=== PATIENT | female | born 1945 | race Caucasian/White ===

== ENCOUNTER → 2016-10-02 | Outpatient (CLI) | payer OTHER, MEDICARE ==
--- NOTE | 2016-10-02 21:13 | MR ---
"MRI Cervical Spine (Without Contrast) History: M47.12, M54.2, cervicalgia, spondylosis, myelopathy, M54.12, radiculopathy. Technique: Sagittal T1, T2, axial T2, and 3D gradient echo MR sequences of the cervical spine, witho ut contrast. Findings: Reversal of the normal lordotic curvature of the cervical spine. No cervical compressio n fractures or destructive osseous lesions. Grade 1 anterolisthesis at C3-C4 and C4-C5. Grade 1 ret rolisthesis at C5-C6. Grade 1 anterolisthesis at C7-T1. Cerebellar tonsils are in normal position. Cord compression, especially at C3-C4 and C5-C6, with possible mild cord edema at C3-C4 and C5-C6. C2-C3: Mild bilateral facet arthropathy, without stenosis. C3-C4: Moderate degenerative disk disease, with degenerative grade 1 anterolisthesis, 4 mm, dorsal d isk/osteophyte complex, and moderate bilateral facet arthropathy, resulting in severe central canal s tenosis, with cord compression, cord deformity, and cord edema, and severe bilateral neural foraminal stenosis. C4-C5: Moderate degenerative disk disease, with dorsal disk/osteophyte complex, mild anterolisthesis , and bilateral uncovertebral osteophytes, with moderate bilateral facet arthropathy, resulting in mo derate central canal stenosis, with slight cord compression, moderate to severe right neural foramina l stenosis, and mild to moderate left neural foraminal stenosis. C5-C6: Severe degenerative disk disease, with dorsal disk/osteophyte complex, asymmetrically more pr ominent towards the right, bilateral uncovertebral osteophytes, and degenerative grade 1 retrolisthes is, resulting in severe central canal stenosis, with cord compression and deformity, cord edema, and moderate to severe bilateral neural foraminal stenosis, right worse than left. C6-C7: Severe degenerative disk disease, with dorsal disk/osteophyte complex and bilateral uncoverte bral osteophytes, with mild bilateral facet arthropathy, resulting in moderate to severe central jhonathan l stenosis, with slight cord compression and deformity, and moderate bilateral neural foraminal steno sis, without definite cord edema. C7-T1: Severe bilateral facet arthropathy, mild degenerative disk disease, and degenerative grade 1 anterolisthesis, resulting in mild to moderate bilateral neural foraminal stenosis, without central c anal stenosis. Impressions 1. Severe degenerative disk disease, with cord compression and edema, from C3-C4 through C6-C7, wors e at C3-C4 and C5-C6. 2. C3-C4: Degenerative grade 1 anterolisthesis resulting in cord compression and edema. 3. C5-C6: Degenerative retrolisthesis resulting in cord compression and edema. 4. Please see above findings at specific disk levels. Findings and recommendations discussed with Josi Morales PA-C, cash person for Neurosurgery, at [address], on October 02, 2016. A Document Only message has been documented for RUBY Rashid in the [employer] | Crit ical Result system on 10/02/2016 20:55, Message ID [id number]."
== END ==
LOC: FIMAGING 18:39
PROVIDERS: ATTEND Physician Assistant
DX: M50.31 Other cervical disc degeneration, high cervical region (principal); G95.29 Other cord compression; M43.12 Spondylolisthesis, cervical region; M50.922 Unspecified cervical disc disorder at C5-C6 level

== ENCOUNTER 2016-10-04 19:24 | Observation (INO) | payer OTHER, MEDICARE ==
--- NOTE | 2016-10-04 20:05 | EDPHY ---
H & P Stated Complaint: back pain, left arm numbness- MRI done on wednesday Time Seen by Provider: 10/04/16 19:47 HPI/ROS: CHIEF COMPLAINT: Arm numbness. HISTORY OF PRESENT ILLNESS: The patient is a 71-year-old female with chronic back pain presenting with ongoing left arm numbness. The numbness began last week so she visited Dr. Viera who ordered an MRI that was taken 3 days ago. It showed cord compression and edema at multiple cervical levels. According to the patient, she has not discussed the MRI results with her neurosurgeon. 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 She admits ataxic gait and shortness of breath today and feels off balance. She developed a fever today and dysuria and is febrile on presentation at 38.2. She admits recent cold symptoms including dry cough and rhinorrhea. No chills, chest pain, palpitations, vomiting, diarrhea, headache, lightheadedness. She did get a flu shot this year. REVIEW OF SYSTEMS: Aside from elements discussed in the HPI, a comprehensive 10-point review of systems was reviewed and is negative. Patient received reports she has not been taking her Coumadin. PAST MEDICAL HISTORY: Chronic back pain, cholecystitis, Factor V Leiden, sleep apnea, hyperlipidemia, knee replacements. SOCIAL HISTORY: Here with son. VITAL SIGNS: Reviewed by me GENERAL: Overweight individual, resting comfortably in no respiratory distress. HEENT: Atraumatic. Eyes: No icterus, no injection. Mouth: moist mucous membranes. No erythema or lesions. Neck: supple with no adenopathy. LUNGS: Diminished breath sounds bilaterally but clear. No wheezes, rhonchi or rales. CARDIAC: Regular rate and rhythm, no rubs, murmurs or gallops. ABDOMEN: Soft, nontender, nondistended, bowel sounds normal. BACK: No CVA tenderness. EXTREMITIES: No trauma. No edema. Range of motion is normal throughout. NEURO: Deltoid strength 4/5 bilaterally. Biceps strength 3/5 bilaterally. Triceps 4/5 bilaterally. Hand abrasives sales representative weak, 2.5/5 left and 3.5/5. Alert and oriented. Gait is slow, and patient reports feeling very weak. Motor strength in the lower extremities, 4/5 bilaterally. SKIN: Warm and dry, no rash. PSYCHIATRIC: Normal mentation, no agitation. Portions of this note were transcribed by a medical records supervisor. I personally performed a history, physical exam, medical decision making, and confirmed accuracy of information the transcribed note. - Personal History Tetanus Vaccine Date: doesn't know - Medical/Surgical History Hx Asthma: No Hx Chronic Respiratory Disease: No Hx Diabetes: No Hx Cardiac Disease: No Hx Renal Disease: No Hx Cirrhosis: No Hx Alcoholism: No Hx HIV/AIDS: No Hx Splenectomy or Spleen Trauma: No Other PMH: Obesity, chronic back pain, GALLBLADDER DISEASE. Factor V blood. thyroid. HTN. blood thinner. sleep apnea. Hyperlipidemia. b knee replacements. pins in back. bulging discs. - Social History Smoking Status: Never smoked Constitutional: Initial Vital Signs Temperature (C) 38.2 C 10/04/16 19:28 Heart Rate 103 H 10/04/16 19:28 Respiratory Rate 20 10/04/16 19:28 Blood Pressure 134/78 H 10/04/16 19:28 O2 Sat (%) 94 10/04/16 19:28 O2 Delivery Mode Room Air Allergies/Adverse Reactions: No Known Allergies Allergy (Unverified 10/04/16 19:28) Home Medications: Medication Instructions Recorded Alendronate Sodium [Fosamax 70 MG 70 mg PO MO@0700 07/08/15 (*)] Levothyroxine [Synthroid 75 mcg 75 mcg PO DAILY06 07/08/15 (*)] Multivitamins [Multivitamin (*)] 1 each PO DAILY 07/08/15 Omeprazole [Prilosec 20 mg] 20 mg PO BID 07/08/15 Ondansetron Odt [Zofran Odt 4 mg 4 mg PO TID PRN 07/08/15 (*)] Oxybutynin Chloride Xl [Ditropan 10 mg PO DAILY 07/08/15 Xl 5mg (*)] Simvastatin [Zocor] 40 mg PO HS 07/08/15 Sulfamethoxazole/Trimethoprim 1 each PO DAILY 07/08/15 [Bactrim SS] Venlafaxine Xr [Effexor Xr 37.5MG 37.5 mg PO MOWEFR 07/08/15 (*)] Warfarin Sodium 6 mg PO DAILY@16 07/08/15 Enoxaparin [Lovenox] 150 mg SC DAILY #5 syr 07/10/15 Hydrocodone/APAP 5/325 [[place] 1 - 2 tab PO Q6 PRN #30 tab 07/10/15 5/325 (*)] levOFLOXACIN [levAQUIN (*)] 750 mg PO DAILY10 #5 tab 07/10/15 Medical Decision Making - Diagnostics EKG Interpretation: 12-LEAD EKG: Please see the full report in [employer] [facility]. My interpretation: Normal sinus rhythm rate 90. Imaging: Chest x-ray was obtained. I viewed the images myself on the PACS system. My interpretation of the images is: No acute findings. The radiologist interpretation is pending at this time. I discussed the x-ray findings with the patient. ED Course/Re-evaluation: An IV was established. Chest x-ray ordered. 2016: Consulted with Dr. Reagan, neurosurgery. Per Dr. Reagan, the neurosurgeon versus has been trying to reach the patient over the weekend to discuss her MRI results. Most likely the patient will require a cervical fusion. Evaluation for the patient's fever was undertaken. Urinalysis demonstrates 50- 182 white cells per high-power field, 4+ bacteria, leukocyte Estrace. There is 3+ epithelial cells as well. This is sent for culture. Patient received a L of normal saline and a g of ceftriaxone. Her course was discussed with Dr. Perlita Veras. Patient does not feel like she is safe to go home. She reports feeling to off balance and to generally weak. She was admitted to the hospitalist service. Dr. Reagan will consult on her in the morning. Differential Diagnosis: Differential diagnosis for fever in adults was considered including but not limited to pneumonia, urinary tract infection, viral syndrome, and influenza. Differential diagnosis of the patient's weakness was considered including but not limited to electrolyte abnormality, anemia, cardiac ischemia, CVA, spinal cord abnormality, and infectious causes. Consult/Admit Bed Type: Dr. Perlita Veras , med surg - Data Points Laboratory Results: Laboratory Results 10/04/16 20:18 10/04/16 20:18 10/04/16 10/04/16 10/04/16 20:45 20:35 20:18 WBC 10.20 H 10^3/uL (3.80-9.50) RBC 4.74 10^6/uL (4.18-5.33) Hgb 15.2 g/dL (12.6-16.3) Hct 44.0 % (38.0-47.0) MCV 92.8 fL (81.5-99.8) MCH 32.1 pg (27.9-34.1) MCHC 34.5 g/dL (32.4-36.7) RDW 13.2 % (11.5-15.2) Plt Count 302 10^3/uL (150-400) MPV 10.4 fL (8.7-11.7) Neut % (Auto) 75.3 H % (39.3-74.2) Lymph % (Auto) 13.6 L % (15.0-45.0) [place] % (Auto) 8.7 % (4.5-13.0) Eos % (Auto) 1.9 % (0.6-7.6) Baso % (Auto) 0.2 L % (0.3-1.7) Nucleat RBC Rel Count 0.0 % (0.0-0.2) Absolute Neuts (auto) 7.68 H 10^3/uL (1.70-6.50) Absolute Lymphs (auto) 1.39 10^3/uL (1.00-3.00) Absolute Monos (auto) 0.89 H 10^3/uL (0.30-0.80) Absolute Eos (auto) 0.19 10^3/uL (0.03-0.40) Absolute Basos (auto) 0.02 10^3/uL (0.02-0.10) Absolute Nucleated RBC 0.00 10^3/uL (0-0.01) Immature Gran % 0.3 % (0.0-1.1) Immature Gran # 0.03 10^3/uL (0.00-0.10) PT 14.4 SEC (12.0-15.0) INR 1.13 (0.83-1.16) Sodium 139 mEq/L (134-144) Potassium 4.2 mEq/L (3.5-5.2) Chloride 103 mEq/L (97-110) Carbon Dioxide 26 mEq/l (22-31) Anion Gap 10 mEq/L (8-16) BUN 10 mg/dL (7-23) Creatinine 0.9 mg/dL (0.6-1.0) Estimated GFR > 60 Glucose 102 H mg/dL (70-100) Calcium 8.9 mg/dL (8.5-10.4) Troponin I < 0.012 ng/mL (0-0.034) Urine Color YELLOW Urine Appearance MODERATELY TURBID Urine pH 7.0 (5.0-7.5) Ur Specific [place] 1.008 (1.002-1.030) Urine Protein 1+ H (NEGATIVE) Urine Ketones NEGATIVE (NEGATIVE) Urine Blood 2+ H (NEGATIVE) Urine Nitrate NEGATIVE (NEGATIVE) Urine Bilirubin NEGATIVE (NEGATIVE) Urine Urobilinogen NEGATIVE EU (0.2-1.0) Ur Leukocyte Esterase 3+ H (NEGATIVE) Urine RBC 25-50 H /hpf (0-3) Urine WBC 50-182 H /hpf (0-3) Ur Epithelial Cells 3+ H /lpf (NONE-1+) Urine Bacteria 4+ H /hpf (NONE SEEN) Urine Glucose NEGATIVE (NEGATIVE) Influenza A & B (PCR) Pending Medications Given: Discontinued Medications Ceftriaxone Sodium/Dextrose (Rocephin 1 Gm (Premix)) 50 mls @ 100 mls/hr IV EDNOW ONE PRN Reason: Protocol Stop: 10/04/16 21:48 Last Admin: 10/04/16 21:25 Dose: 50 mls Sodium Chloride (Ns) 1,000 mls @ 0 mls/hr IV ONCE ONE PRN Reason: Wide Open Stop: 10/04/16 21:20 Last Admin: 10/04/16 21:25 Dose: 1,000 mls Departure - Departure Disposition: [facility] Inpatient Acute Clinical Impression: Cervical radiculopathy, Weakness, Arm numbness, off balance Condition: Fair Referrals: Billie Harvey, DIPLOMATIC COURIER [Primary Care Provider] - As per Instructions Report Scribed for: Katy Kothari Report Scribed by: Go Yang Date of Report: 10/04/16 Time of Report: 19:49
[2016-10-04 20:34] LABS: % IMMATURE GRANULYOCYTES 0.3 % (0.0-1.1); ABSOLUTE IMMATURE GRANULOCYTES 0.03 10^3/uL (0.00-0.10); ADD DIFF? NO; ADD MORPH? NO; ADD SCAN? NO; ATYPICAL LYMPHOCYTE FLAG 0 (0-99); FRAGMENT RBC FLAG 0 (0-99); HEMOGLOBIN 15.2 g/dL (12.6-16.3); LEFT SHIFT FLG 0 (0-99); LIPEMIA HEMOLYSIS FLAG 90 (0-99); MEAN CELL HEMOGLOBIN 32.1 pg (27.9-34.1); MEAN CELL HEMOGLOBIN CONCENTR. 34.5 g/dL (32.4-36.7); MEAN CELL VOLUME 92.8 fL (81.5-99.8); MEAN PLATELET VOLUME 10.4 fL (8.7-11.7); PLATELET CLUMPS FLAG 0 (0-99); PLATELET COUNT 302 10^3/uL (150-400); RED BLOOD CELL COUNT 4.74 10^6/uL (4.18-5.33); RED CELL DISTRIBUTION WIDTH 13.2 % (11.5-15.2)
--- NOTE | 2016-10-04 20:41 | CPEKG ---
Heart Rate: 90 RR Interval: 667 P-R Interval: 144 QRSD Interval: 78 QT Interval: 364 QTC Interval: 446 P [place]: 40 QRS [place]: 58 T Wave [place]: 31 EKG Severity - NORMAL ECG - EKG Impression: SINUS RHYTHM Electronically Signed By: Nahomy Hughes 05-Oct-2016 06:43:36
--- NOTE | 2016-10-04 20:46 | DX ---
PA and Lateral Chest 20:04 PM Indication: Fever Comparison: 2 view chest dated July 11, 2014 Findings: Lungs remain well aerated and clear. Heart size normal. No consolidation, effusion or mass. Heart size within normal limit. Mild multilevel degenerative disk disease unchanged. Impression: Clear lungs. No pneumonia or acute process.
[2016-10-04 20:49] LABS: ANION GAP 10 mEq/L (8-16); CALCIUM 8.9 mg/dL (8.5-10.4); CARBON DIOXIDE 26 mEq/l (22-31); CHLORIDE 103 mEq/L (97-110); CREATININE 0.9 mg/dL (0.6-1.0); GLOMERULAR FILTRATION RATE > 60; GLUCOSE 102 mg/dL (70-100); POTASSIUM 4.2 mEq/L (3.5-5.2); SODIUM 139 mEq/L (134-144)
[2016-10-04 20:59] LABS: TROPONIN I < 0.012 ng/mL (0-0.034)
[2016-10-04 21:01] LABS: COLOR YELLOW; LEUKOCYTE ESTERASE,URINE 3+ (NEGATIVE); NITRITE,URINE NEGATIVE (NEGATIVE)
[2016-10-04 21:03] LABS: INR 1.13 (0.83-1.16); PROTIME(PATIENT) 14.4 SEC (12.0-15.0)
[2016-10-04 21:08] LABS: BACTERIA 4+ /hpf (NONE SEEN); RBC,URINE 25-50 /hpf (0-3); WBC,URINE 50-182 /hpf (0-3)
[2016-10-04] MEDS ORDERED: NS 1,000 ML IV ONE (21:19)
[2016-10-04] MEDS ORDERED: ACETAMINOPHEN 500 MG TAB PO ONE (22:11)
[2016-10-04] MEDS ORDERED: ONDANSETRON DISINTEGRATING 4 MG TAB PO PRN (23:04)
[2016-10-04] MEDS ORDERED: ONDANSETRON 4 MG/2 ML VIAL IVP PRN (23:04)
[2016-10-04] MEDS ORDERED: ACETAMINOPHEN 500 MG TAB PO PRN (23:04)
[2016-10-04] MEDS ORDERED: IBUPROFEN 200 MG TAB PO PRN (23:04)
[2016-10-04] MEDS: NS 1,000 ML IV SCH (23:32)
[2016-10-04] MEDS: oxyCODONE IR 5 MG TAB PO PRN (23:32)
--- NOTE | 2016-10-04 23:40 | PDGENHP ---
History and Physical - Chief Complaint b/l hand numbness/tingling - History of Present Illness Patient is a 71-year-old female with a history of morbid obesity, factor 5 Leiden deficiency, hypothyroidism and extensive degenerative disc disease of her lumbar and cervical spine who presents to the ED complaining of bilateral hand numbness and tingling. Patient states symptoms have been present for a long while, however having worsened recently over the past 2 weeks. She describes her left hand and her right 1st 3 fingers as having numbness and tingling, associated with loss of wood chopper strength. Given the progression of her symptoms she schedule an appointment with her neurosurgeon, was evaluated in his office on 09/29. MRI of the cervical spine was ordered at that time and completed on the evening of 10/02 and she missed her neurosurgeon's calls home regarding the results of the scan. On day of presentation, patient states that she began experiencing urinary frequency and urgency as well as burning. Admission she felt generally unwell reported some subjective fevers and chills so she decided to come to the ED for further evaluation. She denies any nausea vomiting diarrhea or flank pain. On arrival to the ED patient was afebrile and tachycardic, but hemodynamically stable saturating well on room air. ED workup revealed mild leukocytosis, and grossly positive UA, normal BMP. Results of the MRI of her C- spine were reviewed, revealed extensive cervical cord compression with associated edema. Neurosurgery was contacted by the ED physician and stated there was no acute indication for emergent surgery or IV steroids. She was given IV ceftriaxone for treatment of her UTI and admitted to the hospitalist service for further evaluation and management. History Information - Allergies/Home Medication List Allergies/Adverse Reactions: No Known Allergies Allergy (Unverified 10/04/16 19:28) Home Medications: Alendronate Sodium [Fosamax 70 MG (*)] 70 mg PO MO@0700 07/08/15 [Last Taken ] Levothyroxine [Synthroid 75 mcg (*)] 75 mcg PO DAILY06 07/08/15 [Last Taken ] Multivitamins [Multivitamin (*)] 1 each PO DAILY 07/08/15 [Last Taken 07/05/15] Omeprazole [Prilosec 20 mg] 20 mg PO BID 07/08/15 [Last Taken 07/06/15] Ondansetron Odt [Zofran Odt 4 mg (*)] 4 mg PO TID PRN 07/08/15 [Last Taken 07/07] Oxybutynin Chloride Xl [Ditropan Xl 5mg (*)] 10 mg PO DAILY 07/08/15 [Last Taken 07/05/15] Simvastatin [Zocor] 40 mg PO HS 07/08/15 [Last Taken 07/05/15] Sulfamethoxazole/Trimethoprim [Bactrim SS] 1 each PO DAILY 07/08/15 [Last Taken 07/05/15] Venlafaxine Xr [Effexor Xr 37.5MG (*)] 37.5 mg PO MOWEFR 07/08/15 [Last Taken ] Warfarin Sodium 6 mg PO DAILY@16 07/08/15 [Last Taken 07/05/15] I have personally reviewed and updated: family history, medical history, social history, surgical history - Past Medical History Additional medical history: Morbid obesity. factor 5 Leiden. hypothyroidism. history of DVT. hypertension. degenerative disc disease of the lumbar and cervical spine - Surgical History Additional surgical history: lumbar fusion x2. cholecystectomy. 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 Review of Systems ROS: 10pt was reviewed & negative except for what was stated in HPI & below Physical Exam Temp Pulse Resp BP Pulse Ox 37.8 C 93 18 119/69 92 10/04/16 23:16 10/04/16 23:16 10/04/16 23:16 10/04/16 23:16 10/04/16 23:16 Constitutional: no apparent distress, appears nourished, not in pain, obese Eyes: PERRL, anicteric sclera, EOMI Ears, Nose, Mouth, Throat: hearing normal, ears appear normal, no oral mucosal ulcers, dry mucous membranes Cardiovascular: regular rate and rhythym, no murmur, rub, or gallop, pulses symmetric bilaterally, No JVD, No edema Peripheral Pulses: 2+: dorsalis-pedis (R), dorsalis-pedis (L) Respiratory: no respiratory distress, no rales or rhonchi, clear to auscultation Gastrointestinal: normoactive bowel sounds, soft, non-tender abdomen, no palpable masses, No guarding, No rebound Genitourinary: no bladder fullness, no bladder tenderness Skin: warm, normal color, no rashes or abrasions, no fluctuance, No mottled Musculoskeletal: no muscle tenderness, normal joint ROM, no joint effusions Neurologic: AAOx3, sensation intact bilaterally, weakness (symmetric wood chopper weakness in b/l hands; 5/5 strength in lower extremities), CN II-XII Intact, No facial droop Psychiatric: interacting appropriately, not anxious, not encephalopathic, thought process linear Lab Data & Imaging Review 10/04/16 20:18 10/04/16 20:18 WBC 10.20 10^3/uL (3.80-9.50) H 10/04/16 20:18 RBC 4.74 10^6/uL (4.18-5.33) 10/04/16 20:18 Hgb 15.2 g/dL (12.6-16.3) 10/04/16 20:18 Hct 44.0 % (38.0-47.0) 10/04/16 20:18 MCV 92.8 fL (81.5-99.8) 10/04/16 20:18 MCH 32.1 pg (27.9-34.1) 10/04/16 20:18 MCHC 34.5 g/dL (32.4-36.7) 10/04/16 20:18 RDW 13.2 % (11.5-15.2) 10/04/16 20:18 Plt Count 302 10^3/uL (150-400) 10/04/16 20:18 MPV 10.4 fL (8.7-11.7) 10/04/16 20:18 Neut % (Auto) 75.3 % (39.3-74.2) H 10/04/16 20:18 Lymph % (Auto) 13.6 % (15.0-45.0) L 10/04/16 20:18 [place] % (Auto) 8.7 % (4.5-13.0) 10/04/16 20:18 Eos % (Auto) 1.9 % (0.6-7.6) 10/04/16 20:18 Baso % (Auto) 0.2 % (0.3-1.7) L 10/04/16 20:18 Nucleat RBC Rel Count 0.0 % (0.0-0.2) 10/04/16 20:18 Absolute Neuts (auto) 7.68 10^3/uL (1.70-6.50) H 10/04/16 20:18 Absolute Lymphs (auto) 1.39 10^3/uL (1.00-3.00) 10/04/16 20:18 Absolute Monos (auto) 0.89 10^3/uL (0.30-0.80) H 10/04/16 20:18 Absolute Eos (auto) 0.19 10^3/uL (0.03-0.40) 10/04/16 20:18 Absolute Basos (auto) 0.02 10^3/uL (0.02-0.10) 10/04/16 20:18 Absolute Nucleated RBC 0.00 10^3/uL (0-0.01) 10/04/16 20:18 Immature Gran % 0.3 % (0.0-1.1) 10/04/16 20:18 Immature Gran # 0.03 10^3/uL (0.00-0.10) 10/04/16 20:18 PT 14.4 SEC (12.0-15.0) 10/04/16 20:18 INR 1.13 (0.83-1.16) 10/04/16 20:18 Sodium 139 mEq/L (134-144) 10/04/16 20:18 Potassium 4.2 mEq/L (3.5-5.2) 10/04/16 20:18 Chloride 103 mEq/L (97-110) 10/04/16 20:18 Carbon Dioxide 26 mEq/l (22-31) 10/04/16 20:18 Anion Gap 10 mEq/L (8-16) 10/04/16 20:18 BUN 10 mg/dL (7-23) 10/04/16 20:18 Creatinine 0.9 mg/dL (0.6-1.0) 10/04/16 20:18 Estimated GFR > 60 10/04/16 20:18 Glucose 102 mg/dL (70-100) H 10/04/16 20:18 Calcium 8.9 mg/dL (8.5-10.4) 10/04/16 20:18 Troponin I < 0.012 ng/mL (0-0.034) 10/04/16 20:18 Urine Color YELLOW 10/04/16 20:45 Urine Appearance MODERATELY TURBID 10/04/16 20:45 Urine pH 7.0 (5.0-7.5) 10/04/16 20:45 Ur Specific [place] 1.008 (1.002-1.030) 10/04/16 20:45 Urine Protein 1+ (NEGATIVE) H 10/04/16 20:45 Urine Ketones NEGATIVE (NEGATIVE) 10/04/16 20:45 Urine Blood 2+ (NEGATIVE) H 10/04/16 20:45 Urine Nitrate NEGATIVE (NEGATIVE) 10/04/16 20:45 Urine Bilirubin NEGATIVE (NEGATIVE) 10/04/16 20:45 Urine Urobilinogen NEGATIVE EU (0.2-1.0) 10/04/16 20:45 Ur Leukocyte Esterase 3+ (NEGATIVE) H 10/04/16 20:45 Urine RBC 25-50 /hpf (0-3) H 10/04/16 20:45 Urine WBC 50-182 /hpf (0-3) H 10/04/16 20:45 Ur Epithelial Cells 3+ /lpf (NONE-1+) H 10/04/16 20:45 Urine Bacteria 4+ /hpf (NONE SEEN) H 10/04/16 20:45 Urine Glucose NEGATIVE (NEGATIVE) 10/04/16 20:45 Influenza A & B (PCR) NEGATIVE FOR FLU (NEGATIVE) 10/04/16 20:35 Visualized and Interpreted Chest x-ray results: Yes Chest X-Ray results: no infiltrate, normal Visualized and Interpreted imaging results: Yes Interpretation: 10/02/2016 MRI c-spine: extensive (C3-C4, C6-C7) cord compression with edema Visualized and Interpreted EKG results: Yes EKG Interpretation: Positive for: normal sinsus rhythm. Negative for: NS ST wave abnormalities Assessment & Plan Assessment: Patient is a 71-year-old female with history morbid obesity, hypothyroidism, factor 5 Leiden syndrome and severe, extensive degenerative disc disease, with MRI of C-spine revealing evidence of cord compression. Patient also with evidence of sepsis secondary to UTI. Plan: # Severe degenerative disc disease Recent outpatient MRI reveals progression of DDD has resulted in cord compression with surrounding edema. Neurosurgery felt there was no indication for emergent surgical intervention or IV steroids, will fully consult in the a.m. # sepsis secondary to UTI on presentation to the ED patient was febrile, tachycardic and UA was grossly positive. Labs revealed no evidence of end-organ damage, kidney injury and lactate was within normal limits. Will continue IV ceftriaxone and follow up cultures. # Factor V Leiden, h/o DVT INR subtherapeutic, patient self discontinued her warfarin five days ago, states she did this in attempt to expedite surgical intervention for her C- spine. Pending neurosurgery's full consult regarding timing of her surgery, will continue to hold coumadin and bridge with weight-based Lovenox. No evidence of DVT on exam. # Hypothyroidism Check TSH and continue synthroid # morbid obesity BMI >42, consistent with morbid obesity. # dispo: will admit under observation status for UTI, which may need to be upgraded to inpatient status if Neurosurgery plans to proceed with surgerical intervention during this admission #gen: regular diet DVT ppx: full dose lovenox Full code
[2016-10-05] MEDS: ENOXAPARIN 120 MG/0.8 ML SYR SC SCH ×3 (00:40→15:35)
[2016-10-05] MEDS: oxyCODONE IR 5 MG TAB PO PRN (04:42)
[2016-10-05 05:08] LABS: % IMMATURE GRANULYOCYTES 0.6 % (0.0-1.1); ABSOLUTE IMMATURE GRANULOCYTES 0.05 10^3/uL (0.00-0.10); ADD DIFF? NO; ADD MORPH? NO; ADD SCAN? NO; ATYPICAL LYMPHOCYTE FLAG 0 (0-99); FRAGMENT RBC FLAG 0 (0-99); HEMATOCRIT 37.8 % (38.0-47.0); HEMOGLOBIN 12.9 g/dL (12.6-16.3); LEFT SHIFT FLG 0 (0-99); LIPEMIA HEMOLYSIS FLAG 90 (0-99); MEAN CELL HEMOGLOBIN 32.2 pg (27.9-34.1); MEAN CELL HEMOGLOBIN CONCENTR. 34.1 g/dL (32.4-36.7); MEAN CELL VOLUME 94.3 fL (81.5-99.8); MEAN PLATELET VOLUME 10.6 fL (8.7-11.7); PLATELET CLUMPS FLAG 0 (0-99); PLATELET COUNT 257 10^3/uL (150-400); RED BLOOD CELL COUNT 4.01 10^6/uL (4.18-5.33); RED CELL DISTRIBUTION WIDTH 13.2 % (11.5-15.2)
[2016-10-05 05:17] LABS: INR 1.33 (0.83-1.16); PROTIME(PATIENT) 16.5 SEC (12.0-15.0)
[2016-10-05 05:18] LABS: APTT 35.8 SEC (23.0-38.0)
[2016-10-05 05:23] LABS: ANION GAP 5 mEq/L (8-16); CALCIUM 8.3 mg/dL (8.5-10.4); CARBON DIOXIDE 25 mEq/l (22-31); CHLORIDE 109 mEq/L (97-110); CREATININE 0.8 mg/dL (0.6-1.0); GLOMERULAR FILTRATION RATE > 60; GLUCOSE 108 mg/dL (70-100); MAGNESIUM 2.1 mg/dL (1.6-2.3); POTASSIUM 3.9 mEq/L (3.5-5.2); SODIUM 139 mEq/L (134-144)
[2016-10-05 07:53] VITALS: RESP 16
--- NOTE | 2016-10-05 08:12 | GCON ---
[f rep st] CONSULTATION NEUROSURGICAL CONSULTATION. DATE OF CONSULTATION: 10/05/2016 CHIEF COMPLAINT: Bilateral hand pain and numbness. HISTORY OF PRESENT ILLNESS: Ms. Rouse is a 71-year-old female with a history of factor 5 Leiden deficiency, hypothyroidism. She is on Coumadin for a factor 5 Leiden deficiency. Over the last several months, she has noticed neck pain with bilateral arm pain and numbness. 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 She is also having some ataxia as well as worsening urinary leakage. She had an MRI of the cervical spine performed over the weekend which showed severe cervical stenosis. She was admitted for further observation. She currently complains of ongoing numbness in both of her arms and hands with ongoing weakness. PAST MEDICAL HISTORY: 1. Morbid obesity. 2. Factor 5 Leiden deficiency. 3. Hypothyroidism. 4. Lumbar degenerative joint disease. MEDICATIONS: Prior to admission are Fosamax, Synthroid, multivitamin, Prilosec , Zofran, Zocor, Bactrim, Effexor and Coumadin. ALLERGIES: No known drug allergies. FAMILY HISTORY: Patient has a family history of coronary artery disease and lung cancer. SOCIAL HISTORY: Patient is , but with grown children. She denies smoking or drug use, but does drink approximately half glass of wine per day. REVIEW OF SYSTEMS: Negative. PHYSICAL EXAM: Patient is a 71-year-old female lying in bed, in no apparent distress. HEAD, EYES, EARS, NOSE, AND THROAT: Negative for drainage. EXTREMITIES: [place], warm, and dry. NEUROLOGICAL: Patient is awake, alert, and oriented x4. Pupils equal, round, reactive to light. Extraocular motions are intact. There is no evidence of facial droop. Tongue and uvula are midline. Spinal accessory muscles are intact. Her motor strength is 5/5 in all muscle groups of her upper and lower extremities bilaterally, with the exception of her lobby attendant and intrinsics which are 5- out of 5. Deep tendon reflexes are 3+ out of 4 in the bilateral biceps, triceps, brachioradialis, patellar, 2+ out of 4 in the bilateral Achilles. There is a negative Karen's with no clonus. DIAGNOSTIC STUDIES: An MRI of the cervical spine from the [facility] PACS system shows straightening of the sagittal alignment. There is severe degenerative joint disease and stenosis at C3-4, C4/5 as well as C5-6. There appears to be evidence of gliosis within the spinal cord at the C5-6 level. IMPRESSION: This is a 71-year-old female with a history of progressive myelopathic symptoms that are likely related to her severe cervical stenosis at C3/4, 4/5, 5/6. PLAN: All of the above discussed in detail with the patient. At this point in time, her Coumadin has been held and she has been on Lovenox. Her INR this morning is 1.33. This patient will be seen by Dr. Viera later today. It was discussed with Ms. Rouse that that she would likely require a C3/4, 4/5, 5/6 anterior cervical diskectomy and arthrodesis to address her severe cervical stenosis. She would like to proceed with surgery at the soonest available time. We discussed with Ms. Rouse that the risks of surgery include, but are not limited to, bleeding, infection, neurological injury, cerebral spinal fluid leak, major vascular injury, and the risk of ongoing symptoms postoperatively. We will discuss timing of the surgery with Dr. Viera. /[id number]/MODL MTDD
[2016-10-05 11:37] VITALS: BP 121/71; PULSE 73; TEMP 98.6; O2SAT 94
[2016-10-05] MEDS: NS 1,000 ML IV SCH (11:42)
--- NOTE | 2016-10-05 14:02 | PDDCSUM ---
Discharge Summary Discharge Summary: DISCHARGE SUMMARY FOLLOW-UP ITEMS: None DATE OF ADMISSION: 10/04/2016 DATE OF DISCHARGE: 10/05/2016 DISCHARGE DIAGNOSES: 1. Urinary tract infection 2. Cervical radiculopathy 3. Chronic factor 5 Leiden disorder CONSULTATIONS: Neurosurgery PROCEDURES / IMAGING: Outpatient cervical MRI demonstrating severe cervical stenosis CHIEF COMPLAINT: Patient presents with bilateral hand paresthesias, paresis, urinary hesitancy and urgency SUBJECTIVE: Patient reports that her urinary symptoms have completely resolved, the bilateral hand paresthesias persist PHYSICAL EXAM ON DISCHARGE: Systolic blood pressure is 130, heart rates in the 80s, satting well on room air , 4/5 motor strength in the left upper extremity and 4/5 motor strength in the left lower extremity, subjective paresthesias in the left upper and left lower extremity LABS ON DISCHARGE: Urine culture pending at time of discharge, TSH 3.5, creatinine 0.8, potassium 3.9, white blood cell count 10,200, hemoglobin 12.9 HOSPITAL COURSE BY PROBLEM: 1. Urinary tract infection. Patient presented with acute non hemorrhagic cystitis as evidenced by positive urinalysis plus positive urine symptoms with a fever and mild leukocytosis. I do not believe that the patient ultimately qualifies as having sepsis. She was initiated on IV ceftriaxone and her urinary symptoms improved. She will be continued on a total of 3 days of subsequent oral ciprofloxacin 500 mg twice daily. She should continue this medication perioperatively. 2. Cervical radiculopathy. Patient has symptoms of severe cervical stenosis including a left susy paresthesias as well as left hemiparesis. Her severe canal stenosis was noted on recent MRI and she is an established patient with the neurosurgery clinic. The decision was made to undergo ACDF and the patient was unable to receive the procedure during this presentation given that she had received Lovenox bridging therapy shortly after midnight. The next available surgical time is on 10/07/2016, the patient will be discharged with follow-up for surgery on that date. The neurosurgery service has provided the patient with all the appropriate information as well as consent. 3. Chronic factor 5 Leiden disorder. Patient has a chronic factor 5 Leiden deficiency and has had deep venous thrombosis in the past. She is high risk for recurrent DVT. She did receive bridging therapy with Lovenox shortly after midnight and will receive a subsequent dose this afternoon. I have discussed with Neurosurgery, and the risks of bleeding during that surgery are significant , so the patient will receive her last dose of bridging Lovenox tomorrow morning. She will remain off of Coumadin during this interval and she will most likely require Lovenox bridging therapy postoperatively. The neurosurgical service is welcome to consult Hospital Medicine with this patient returns for surgery. DISCHARGE MEDICATIONS: Please see official discharge medication reconciliation sheet in chart , Lovenox 120 mg twice daily, 1 dose prescribed to be taken tomorrow a.m.. Ciprofloxacin 500 mg twice daily, 1st dosage to be taken tomorrow a.m.. DISCHARGE INSTRUCTIONS: Please follow up for surgery on 10/07/2016.
--- NOTE | 2016-10-12 08:32 | CPEKG ---
Heart Rate: 147 RR Interval: 408 QRSD Interval: 74 QT Interval: 296 QTC Interval: 463 QRS [place]: 44 T Wave [place]: 11 EKG Severity - ABNORMAL ECG - EKG Impression: ATRIAL FIBRILLATION, V-RATE 117-190 Electronically Signed By: Anastacio Baldwin 12-Oct-2016 10:53:47
== END 2016-10-05 16:12 | disposition home or self-care (01) ==
LOC: F3N 22:46
PROVIDERS: ADMIT Internal Medicine; ATTEND Internal Medicine
DX: M54.12 Radiculopathy, cervical region (principal); N39.0 Urinary tract infection, site not specified; B96.20 Unspecified Escherichia coli [E. coli] as the cause of diseases classified elsewhere; D68.51 Activated protein C resistance; G95.20 Unspecified cord compression; M48.02 Spinal stenosis, cervical region; M51.36 Other intervertebral disc degeneration, lumbar region; R20.2 Paresthesia of skin; R53.1 Weakness; G47.33 Obstructive sleep apnea (adult) (pediatric); G89.29 Other chronic pain; E78.5 Hyperlipidemia, unspecified; I10 Essential (primary) hypertension; Z68.41 Body mass index [BMI] 40.0-44.9, adult; E66.01 Morbid (severe) obesity due to excess calories; Z79.01 Long term (current) use of anticoagulants; Z86.718 Personal history of other venous thrombosis and embolism; Z96.653 Presence of artificial knee joint, bilateral; Z98.1 Arthrodesis status
CPT/HCPCS: 71020; 93005; 96365; 99285; G0378; J0696; J1650

== ENCOUNTER 2016-10-07 15:40 | Inpatient (IN) | payer OTHER, MEDICARE ==
[2016-10-07] MEDS ORDERED: LIDOCAINE 1% 5 ML SDV ONE (15:44)
[2016-10-07] MEDS ORDERED: CHLORHEXIDINE GLUC HIBICLENS 118 ML BTL TP ONE (16:00)
[2016-10-07] MEDS ORDERED: ceFAZolin 2 GM/DEXTROSE 100 ML IV ONE (16:30)
[2016-10-07] MEDS ORDERED: LACTULOSE 20 GM/30 ML UDCUP PO PRN (16:31)
[2016-10-07] MEDS ORDERED: TEMAZEPAM 15 MG CAP PO PRN (16:31)
[2016-10-07] MEDS ORDERED: NALOXONE HCL 0.4 MG/ML INJ IVP PRN (16:31)
[2016-10-07] MEDS ORDERED: ONDANSETRON DISINTEGRATING 4 MG TAB PO PRN (16:31)
[2016-10-07] MEDS ORDERED: DIAZEPAM 10 MG/2 ML SYR IVP PRN (16:31)
[2016-10-07] MEDS ORDERED: THROMBIN (RECOMBINANT) 5,000 UNIT VIAL TP ONE (16:31)
[2016-10-07] MEDS ORDERED: BISACODYL 10 MG SUPP PR PRN (16:31)
[2016-10-07] MEDS ORDERED: morphINE PCA 30 MG/30 ML PCA IV PRN (16:31)
[2016-10-07] MEDS ORDERED: MAGNESIUM HYDROXIDE 30 ML UDCUP PO PRN (16:31)
[2016-10-07] MEDS ORDERED: diphenhydrAMINE 25 MG CAP PO PRN (16:31)
[2016-10-07] MEDS ORDERED: ONDANSETRON 4 MG/2 ML VIAL IVP PRN (16:31)
[2016-10-07] MEDS ORDERED: POLYETHYLENE GLYCOL 3350 17 GM PKT PO PRN (16:31)
[2016-10-07] MEDS ORDERED: BACITRACIN 50,000 UNITS/10 ML SYR IRR ONE (16:32)
[2016-10-07] MEDS ORDERED: BUPIVACAINE/EPI 0.25% 30 ML SDV ONE (16:32)
[2016-10-07] MEDS ORDERED: ENOXAPARIN 60 MG/0.6 ML SYR SC ONE (17:30)
[2016-10-07] MEDS: HYDROCODONE/APAP 10/325 TAB PO PRN ×2 (18:39→23:36)
[2016-10-07] MEDS: SENNOSIDES/DOCUSATE SODIUM TAB PO SCH (20:49)
[2016-10-07] MEDS: FAMOTIDINE 20 MG TAB PO SCH (20:49)
[2016-10-07] MEDS ORDERED: FAMOTIDINE 20 MG/NACL 50 ML IV SCH (21:00)
[2016-10-08] MEDS: NS W/ 20 KCl/L 1,000 ML IV SCH (03:58)
[2016-10-08 05:30] LABS: % IMMATURE GRANULYOCYTES 0.8 % (0.0-1.1); ABSOLUTE IMMATURE GRANULOCYTES 0.05 10^3/uL (0.00-0.10); ADD DIFF? NO; ADD MORPH? NO; ADD SCAN? NO; ATYPICAL LYMPHOCYTE FLAG 10 (0-99); FRAGMENT RBC FLAG 0 (0-99); HEMOGLOBIN 12.7 g/dL (12.6-16.3); LEFT SHIFT FLG 0 (0-99); LIPEMIA HEMOLYSIS FLAG 80 (0-99); MEAN CELL HEMOGLOBIN 31.2 pg (27.9-34.1); MEAN CELL HEMOGLOBIN CONCENTR. 33.4 g/dL (32.4-36.7); MEAN CELL VOLUME 93.4 fL (81.5-99.8); MEAN PLATELET VOLUME 10.2 fL (8.7-11.7); PLATELET CLUMPS FLAG 0 (0-99); PLATELET COUNT 281 10^3/uL (150-400); RED BLOOD CELL COUNT 4.07 10^6/uL (4.18-5.33); RED CELL DISTRIBUTION WIDTH 13.1 % (11.5-15.2)
[2016-10-08 05:46] LABS: ANION GAP 5 mEq/L (8-16); CALCIUM 8.2 mg/dL (8.5-10.4); CARBON DIOXIDE 25 mEq/l (22-31); CHLORIDE 109 mEq/L (97-110); CREATININE 0.8 mg/dL (0.6-1.0); GLOMERULAR FILTRATION RATE > 60; GLUCOSE 98 mg/dL (70-100); SODIUM 139 mEq/L (134-144)
[2016-10-08] MEDS: FAMOTIDINE 20 MG TAB PO SCH ×2 (07:36→19:59)
[2016-10-08] MEDS: SENNOSIDES/DOCUSATE SODIUM TAB PO SCH ×2 (07:36→19:59)
[2016-10-08] MEDS ORDERED: ceFAZolin 2 GM/DEXTROSE 100 ML IV ONE (08:11)
--- NOTE | 2016-10-08 08:15 | NEUSURGPN ---
Assessment/Plan: Assessment: 71 yo female that has severe cervical stenosis that is scheduled for an ACDF C3-C6 today Plan: -pt marked -consents on the chart -pt ready for surgery today-NPO -PT/OT on hold -pt to get fitted for C collar with Hangar -orders in place -pt understands and agrees -risks and benefits were reviewed and all questions answered Subjective: Awake and alert. NAD. No f/c/n/v/d. No other complaints or concerns Objective: AAO x 3, PERRLA/EOMI no droop CN 2-12 grossly intact +lt touch 5/5 BUE/BLE = Neuro Check Frequency: per routine Urinary Catheter in Place: No - Physician Discussed Patient with Dr.: Maximiliano Patient Seen by : Maximiliano Neurosurgery Physical Exam - Vitals, I&O, Labs I and O 10/07/16 10/08/16 10/09/16 05:59 05:59 05:59 Intake Total 725 Balance 725 Weight 115.666 kg Intake: Oral (ml) 500 IV Infused (ml) 225 NS W/ 20 KCl/L 1,000 ml @ 225 75 mls/hr IV CONT WILLY Rx #:[id number] Other: Number of Voids Toilet 2 Vital Signs Temp Pulse Resp BP Pulse Ox 36.9 C 80 18 147/86 H 96 10/08/16 07:31 10/08/16 07:31 10/08/16 07:31 10/08/16 07:31 10/08/16 07:31 Laboratory Results 10/08/16 04:55 10/08/16 04:55 ICD10 Worksheet Patient Problems: Problems Problem Status Diagnosed Arm numbness Acute Cervical radiculopathy Acute Epigastric abdominal pain Acute Weakness Acute
[2016-10-08] MEDS ORDERED: NON-FORMULARY NEW DRUG (Hydrocodone/Acetaminophen [Norco 7.5-325 Tablet] 1 EACH) PO PRN (08:21)
[2016-10-08] MEDS ORDERED: ceFAZolin 2 GM in D5W 100 ML IV ONE (08:30)
[2016-10-08] MEDS ORDERED: NON-FORMULARY NEW DRUG (Oxybutynin Chloride [Ditropan Xl] 10 MG) PO SCH (09:00)
[2016-10-08] MEDS ORDERED: NON-FORMULARY NEW DRUG (Omeprazole [Prilosec 20 Mg] 20 MG) PO SCH (09:00)
[2016-10-08] MEDS ORDERED: LIDOCAINE 1% 5 ML SDV ONE (09:21)
--- NOTE | 2016-10-08 09:36 | GHP ---
[f rep st] HISTORY AND PHYSICAL DATE OF ADMISSION: 10/07/2016 DATE OF EVALUATION: 10/08/2016 REASON FOR CONSULTATION: I was asked by Dr. Viera to see this lady in regard to her medical problem s, including factor V Leiden. HISTORY OF PRESENT ILLNESS: This is a 71-year-old female, who was recently admitted here with worsen ing symptoms from her cervical degenerative disk disease. She was seen by Neurosurgery on that admis farrah, who felt that she would be safe to be discharged and then readmitted for surgery. She was just readmitted last night in preparation for surgery. Surgery was delayed due to scheduling conflicts. Planning on taking her to the operating room soon today. She tells me that she had stopped taking her Coumadin about 7 days ago. Her last INR was checked her e and was found to be 1.3 on October 05. She has received a few doses of bridging Lovenox since then , the last was last evening after surgery was delayed. Her review of systems is relatively unremarkable. No chest pain, shortness of breath, nausea, vomiti ng. She has not eaten since midnight. 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 Her last DVT was 15 years ago; this actually did occur her on Coumadin after a plane trip. She does not remember if her INR was subtherapeutic at that time. She has ongoing issues with superfici al thrombosis although she continues to be on Coumadin. She does not know if she is homozygous or he terozygous though. 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 PAST MEDICAL/SURGICAL HISTORY: 1. Factor V Leiden, with 2 episodes of deep vein thrombosis as above. 2. Morbid obesity. 3. Degenerative disk disease. 4. Cholecystectomy. 5. Bilateral knee replacement. 6. Lumbar fusion x2. MEDICATIONS: Please see medication reconciliation. ALLERGIES: No known drug allergies. FAMILY HISTORY: Father had coronary artery disease and lung cancer. SOCIAL HISTORY: She has never smoked. She occasionally drinks alcohol. She does not use any drugs. She lives alone. She is independent. REVIEW OF SYSTEMS: 10-point review of systems is conducted and is negative, except per HPI. PHYSICAL EXAM: VITAL SIGNS: Blood pressure 127/87, heart rate is 80, respiration rate 18, saturatin g 96% on 2 L, initially 93% on room air. Temperature 36.8. GENERAL: The patient is a pleasant, obes e female, resting comfortably in bed, in no acute distress. HEENT: She is wearing a facial oxygen m ask, otherwise she is normocephalic, atraumatic. CARDIOVASCULAR: Exam shows regular rate and rhythm . No murmurs, rubs, or gallops. PULMONARY: Shows her to be breathing comfortably. Her lungs are c lear to auscultation bilaterally. ABDOMEN: Soft, nontender, nondistended. SKIN: Shows no rash. G U: No [place]. NEUROLOGIC: She is noted to be alert and oriented x3. She is moving all extremities. She has a nonfocal neurologic exam grossly. PSYCHIATRIC: Exam shows normal mood and affect. LABS: CBC is relatively unremarkable. Basic metabolic panel is normal. DATA: 1. I reviewed her chart including her previous admission. 2. I reviewed her C-spine MRI, which was done on 10/02/2016. This showed severe degenerative disk d isease with cord compression and edema from C3-C4 through C6-C7; worse at C3-C4 and C5-C6. 3. I personally viewed and interpreted her chest x-ray from October 04, this showed nothing acute. 4. I personally viewed and interpreted her EKG from October 04, this showed sinus rhythm, it is norm al. IMPRESSION AND PLAN: 1. Degenerative disk disease: Planning on a cervical fusion today by Dr. Viera. 2. Factor V Leiden with a history of 2 deep vein thromboses: Has been receiving bridging Lovenox. Will discuss with Neurosurgery when it is safe to restart her anticoagulation. She would ideally be bridged with Lovenox back to therapeutic Coumadin. Her last clot was 15 years ago but she remains at relatively high risk given her significant clotting history. 3. Morbid obesity. Thank you for allowing Hospital Medicine to participate in the care of this lady. We will continue t o follow with you. /[id number]/MODL
[2016-10-08] MEDS ORDERED: CEFAZOLIN 2 GM/DEXTROSE/100 ML BAG IV ONE (09:43)
[2016-10-08] MEDS ORDERED: THROMBIN (RECOMBINANT) 5,000 UNIT VIAL TP ONE (09:57)
[2016-10-08] MEDS ORDERED: BUPIVACAINE/EPI 0.25% 30 ML SDV ONE (09:57)
[2016-10-08] MEDS ORDERED: BACITRACIN 50,000 UNITS/10 ML SYR IRR ONE (09:58)
[2016-10-08] MEDS ORDERED: fentaNYL 250 MCG/5 ML INJ ONE (10:01)
[2016-10-08] MEDS ORDERED: PROPOFOL/EMULSION 500 MG/50 ML BOTTLE IV ONE ×3 (10:02→12:11)
[2016-10-08] MEDS ORDERED: MIDAZOLAM 2 MG/2 ML VIAL ONE (10:09)
[2016-10-08] MEDS ORDERED: REMIFENTANIL HCL 1 MG VIAL ONE ×2 (10:11→12:12)
[2016-10-08] MEDS: OXYBUTYNIN 5 MG EXT REL TAB PO SCH (11:45)
[2016-10-08] MEDS: PANTOPRAZOLE SODIUM 40 MG TAB PO SCH (11:46)
[2016-10-08] MEDS: SULFAMETHOX/TMP 400/80 MG 1 TAB PO SCH (11:46)
[2016-10-08] MEDS ORDERED: ceFAZolin 1 GM VIAL ONE (13:24)
[2016-10-08] MEDS ORDERED: LABETALOL HCL 5 MG/ML 20 ML MDV ONE (14:14)
[2016-10-08] MEDS ORDERED: HYDROmorphONE/DILAUDID 2 MG/ML SYR ONE (14:47)
[2016-10-08] MEDS ORDERED: fentaNYL 100 MCG/2 ML INJ ONE ×2 (14:47→15:19)
--- NOTE | 2016-10-08 15:32 | DX ---
Fluoroscopy for Intraoperative Localization at 1401 hours Indication: Cervical spine fusion. Fluoroscopy time: 12.7 seconds. Dose: 2.73 mGy. Technique: Two crosstable intraoperative views are obtained of the cervical spine. Findings: A multilevel anterior cervical diskectomy and fusion construct is partially obscured by th e overlying shoulders. Impression: Fluoroscopy provided for intraoperative localization.
--- NOTE | 2016-10-08 15:57 | POSTOPPROG ---
Post Op Note Date of Operation: 10/08/16 Surgeon: Marcio Viera [employer] Machine Tender: Facundo Snyder PA-C Anesthesia: GET(General Endotracheal) Pre-op Diagnosis: cervical stenosis Post-op Diagnosis: s/p ACDF C3-C6 Indication: severe cervical stenosis Procedure: ACDF C3-C6 Inf/Abcess present in the surg proc area at time of surgery?: No Depth: Deep Incisional (Fascial) EBL: 100-500 Complications: none Specimen(s): S: Awake and alert, NAD O: AFVSS/PERRLA/EOMI no droop CN 2-12 grossly intact +lt touch KJ x 4, pt sleepy and some effort dependent weakness in right hand and wrist at 4+/5 CDI neck soft and supple A/P: 71 yo female that is s/p ACDF C3-C6 -orders in place -PT/OT/ST pending -collar when out of bed -RN to call for Hangar to place hard collar-[place] or equivalent
--- NOTE | 2016-10-08 16:12 | GOP ---
[f rep st] OPERATIVE REPORT DATE OF OPERATION: 10/08/2016 SURGEON: Oscar Viera MD GEOSCIENCE LABORATORY TECHNICIAN: 1. Denisse Florian PA-C. 2. Cj Snyder PA-C. PREOPERATIVE DIAGNOSIS: Cervical spondylotic myelopathy, C3-4, C4-5, C5-6. POSTOPERATIVE DIAGNOSIS: Cervical spondylotic myelopathy, C3-4, C4-5, C5-6. PROCEDURE PERFORMED: 1. Anterior cervical diskectomy with decompression and fusion, C3-4, C4-5, C5-6 (22079, 98512 x2). 2. Placement of biomechanical intervertebral device without anchors, C3-4, C4-5, C5-6 (19443 x3). 3. Same incision bone graft harvest, microscope, anterior cervical instrumentation for levels C3, C4 , C5, C6 (23066), microscope. FINDINGS: ESTIMATED BLOOD LOSS: 100 cc. INDICATIONS: Ms. Rouse is a 71-year-old, who was seen for problems in her lower back and was also co mplaining of difficulty with her arms and had upper motor neuron signs on exam. An MRI of the cervic al spine was performed demonstrating severe spinal stenosis at C5-6 and C3-4 with some cord signal ch gem. She had some progressive symptoms and was admitted to the hospital for decompression and fusio n. We had to reschedule her case a couple of times due to scheduling conflicts in the OR, but we did move quickly to get her surgery done. The risk of adjacent segment disease, nerve injury, spinal fl uid leak, quadriplegia, hematoma at the operative site, dysphagia, esophageal injury, carotid injury, recurrent laryngeal nerve injury was all discussed. She understood the dysphagia was expected. She also understood there could be an increased risk of hardware malposition based upon her body habitus and our poor visualization in the OR. She accepted these risks, and she wanted to proceed. DESCRIPTION OF PROCEDURE: Patient was taken to the operating room, placed in supine position. Gener al anesthesia was begun. A large midline shoulder roll was placed. Her head was put on the horsesho e head filter tank tender helper. Care was taken to pad all points of contact. Her neck was sterilely prepped and drap ed in the usual fashion. After localizing x-ray, a transverse incision was made in the do minant upper right neck crease. The subcutaneous tissue was dissected with Bovie cautery down throug h the platysma, and we used a combination of sharp and blunt dissection to work medial to the sternoc leidomastoid down to the prevertebral space. The esophagus was swept contralaterally. The carotid a nd its sheath were swept ipsilaterally, and we shot a localizing x-ray with a needle at C3-4. We dis sected the longus colli muscles off the spine at C3-4, C4-5, C5-6. There were large bony osteophytes at C5-6, and we drilled these osteophytes away and harvested them for autologous grafting purposes. We then placed a distraction pin at C3-4, distracted it at that level and removed the disk and the c artilaginous endplates. We drilled and harvested subchondral bone for autologous grafting purposes, and then opened the PLL and decompressed the spinal canal on the neural foramina bilaterally. A grea t decompression was obtained. A 7 mm PEEK intervertebral device provided by [employer] was packed wit h bone autograft, and it was inserted at the C3-4 level as a PTC PEEK cage. We then moved our dissec tion pin and did likewise at C4-5 where we removed the disk and the cartilaginous endplates. We roug hened the subchondral bone to create arthrodesis. Chose again a 7 x 16 x 14 mm PTC PEEK cage and pac ked with bone autograft and inserted at C4-5. We then removed our distraction pin and went to the C5 -6 level, where there was more disk desiccation and loss of disk height. We removed the disk, the ca rtilaginous endplates, and drilled and harvested subchondral bone for autologous grafting purposes an d then decompressed the spinal canal on the neural foramina bilaterally. There was greater stenosis at this level based upon what we saw here. We chose a 6 mm PEEK intervertebral device, packed it wit h bone autograft, and it was inserted at C5-6. We then chose a 53 mm [employer] Zevo plate with lord osis built into the plate, put a single screw at C3, a single screw at C6, and shot an x-ray. We cheryl e happy with the device. We used a 13 mm rescue screw as our initial screw on the left-hand side. W sharri then put the remaining screws in the plate and used the 15 mm screws the rest of the way and x-rays indicated that these were a good length for her and her neck. We then locked all the screws accordi ng to company specification, shot an x-ray confirming the position of the hardware. We then coagulat ed the longus colli muscles, and placed a little Marcaine with epinephrine in the wound, and then naveen sed the incision in multiple layers using Vicryl sutures. Steri-Strips were applied to the skin. Th e patient was reversed from anesthesia, extubated, and transferred to recovery room in stable conditi on. COMPLICATIONS: None. /[id number]/MODL
[2016-10-08] MEDS: HYDROCODONE/APAP 10/325 TAB PO PRN ×2 (16:47→23:19)
[2016-10-08] MEDS: ATORVASTATIN CALCIUM 20 MG TAB PO SCH (19:59)
[2016-10-08] MEDS: DIAZEPAM 5 MG TAB PO PRN ×2 (19:59→21:38)
[2016-10-08] MEDS ORDERED: NON-FORMULARY NEW DRUG (Simvastatin [Zocor] 40 MG) PO SCH (21:00)
[2016-10-09] MEDS: HYDROCODONE/APAP 10/325 TAB PO PRN (05:30)
[2016-10-09] MEDS: LEVOTHYROXINE 75 MCG TAB PO SCH (05:30)
[2016-10-09] MEDS: NS W/ 20 KCl/L 1,000 ML IV SCH (05:31)
[2016-10-09] MEDS ORDERED: VENLAFAXINE XR 37.5 MG CAP PO SCH (08:21)
--- NOTE | 2016-10-09 09:07 | NEUSURGPN ---
Assessment/Plan: A/P: 71 yo female that is s/p ACDF C3-C6 -optimize -PT/OT/ST pending -Continue hard collar -Optimize pain management -post xrays pending -Seen by Dr. Viera this am -Please notfiy NS with any change in neuro/motor exam Subjective: Some posterior neck pain, denies any new arm pain, arm tingling improved Objective: NAD A&Ox3. MAEx4 5/5 and equal in BUE and BLE. Incisional dressing c/d/i Catheter Insertion Date: 10/08/16 - Physician Patient Seen by : Maximiliano Neurosurgery Physical Exam - Vitals, I&O, Labs I and O 10/08/16 10/09/16 10/10/16 05:59 05:59 05:59 Intake Total 725 3310 Output Total 2550 Balance 725 760 Weight 115.666 kg Intake: Oral (ml) 500 610 IV Intake (ml) 1800 IV Infused (ml) 225 900 NS W/ 20 KCl/L 1,000 ml @ 225 900 75 mls/hr IV CONT WILLY Rx #:[id number] Output: Urine (ml) 2350 Toilet 300 Catheter 2050 Estimated Blood Loss (ml) 200 Other: Number of Voids Toilet 2 Vital Signs Temp Pulse Resp BP Pulse Ox 36.9 C 78 18 152/77 H 94 10/09/16 08:00 10/09/16 08:00 10/09/16 08:00 10/09/16 08:00 10/09/16 08:00 Laboratory Results 10/08/16 04:55 10/08/16 04:55 ICD10 Worksheet Patient Problems: Problems Problem Status Diagnosed Arm numbness Acute Cervical radiculopathy Acute Epigastric abdominal pain Acute Weakness Acute
--- NOTE | 2016-10-09 09:40 | HOSPPROG ---
Hospitalist Progress Note Assessment/Plan: # ACDF C3-C6 POD#1 - per nsg # factor 5 Leiden, history of DVT x2 - last DVT about 15 years ago - per Neurosurgery, okay to start prophylactic Lovenox 48 hours postop, Coumadin 7 days postop; will clarify if bridging Lovenox okay at 7 days - SCDs, early ambulation # morbid obesity ## chart reviewed, op-note reviewed Subjective: No surgical complications; feeling well no chest pain or shortness of breath Objective: Vital Signs Temp Pulse Resp BP Pulse Ox 36.9 C 78 18 152/77 H 94 10/09/16 08:00 10/09/16 08:00 10/09/16 08:00 10/09/16 08:00 10/09/16 08:00 Laboratory Results 10/08/16 04:55 10/08/16 04:55 10/08/16 10/09/16 10/10/16 05:59 05:59 05:59 Intake Total 725 3310 Output Total 2550 Balance 725 760 Vitals reviewed Wearing hard collar neck brace Pleasant, no acute distress Regular rate and rhythm, no murmurs rubs or gallops No respiratory distress, lungs clear to auscultation bilaterally, no wheezes or rales Abdomen soft nontender, nondistended, no hepatosplenomegaly ICD10 Worksheet Patient Problems: Problems Problem Status Diagnosed Arm numbness Acute Cervical radiculopathy Acute Epigastric abdominal pain Acute Weakness Acute
[2016-10-09] MEDS: METHOCARBAMOL 750 MG TAB PO PRN ×2 (09:57→18:37)
[2016-10-09] MEDS: PANTOPRAZOLE SODIUM 40 MG TAB PO SCH (09:57)
[2016-10-09] MEDS: FAMOTIDINE 20 MG TAB PO SCH ×2 (09:57→21:54)
[2016-10-09] MEDS: SENNOSIDES/DOCUSATE SODIUM TAB PO SCH ×2 (09:57→21:54)
[2016-10-09] MEDS: SULFAMETHOX/TMP 400/80 MG 1 TAB PO SCH (09:58)
[2016-10-09] MEDS: OXYBUTYNIN 5 MG EXT REL TAB PO SCH (09:58)
[2016-10-09] MEDS: oxyCODONE IR 5 MG TAB PO PRN ×4 (10:00→21:54)
[2016-10-09] MEDS: DIAZEPAM 5 MG TAB PO PRN ×2 (13:21→21:54)
--- NOTE | 2016-10-09 17:50 | DX ---
Cervical Spine, Two Views, 523 p.m. History: Follow up fusion. Comparison: None available. Findings: Alignment is anatomic. An anterior compression plate with transvertebral body screws and in terbody bone plugs is in excellent position between C3 and C6 there is no evidence for plate loosenin g or bone plug compression or migration.. There is prominent prevertebral soft tissue swelling that m easures up to 3 cm in thickness.. This causes extrinsic compression of the posterior aspect of the or o and hypopharynx. The disk spaces above and below the fusion are normal.. Impression: 1. Excellent postoperative alignment. 2. Prominent prevertebral soft tissue swelling. Results discussed with Dr. Sherman Viera at 545 p.m.
[2016-10-09] MEDS: ENALAPRILAT DIHYDRATE 1.25 MG/ML VIAL IVP PRN (18:49)
[2016-10-09] MEDS: ATORVASTATIN CALCIUM 20 MG TAB PO SCH (21:54)
[2016-10-10] MEDS: ENALAPRILAT DIHYDRATE 1.25 MG/ML VIAL IVP PRN ×2 (00:50→08:03)
[2016-10-10] MEDS: METHOCARBAMOL 750 MG TAB PO PRN ×2 (00:59→14:44)
[2016-10-10] MEDS: oxyCODONE IR 5 MG TAB PO PRN ×2 (00:59→14:44)
[2016-10-10] MEDS: ACETAMINOPHEN 325 MG TAB PO PRN ×2 (00:59→12:08)
[2016-10-10] MEDS: LEVOTHYROXINE 75 MCG TAB PO SCH (05:41)
[2016-10-10] MEDS: FAMOTIDINE 20 MG TAB PO SCH (08:44)
[2016-10-10] MEDS: PANTOPRAZOLE SODIUM 40 MG TAB PO SCH (08:44)
[2016-10-10] MEDS: OXYBUTYNIN 5 MG EXT REL TAB PO SCH (08:44)
[2016-10-10] MEDS: SULFAMETHOX/TMP 400/80 MG 1 TAB PO SCH (08:44)
[2016-10-10] MEDS: SENNOSIDES/DOCUSATE SODIUM TAB PO SCH (08:48)
--- NOTE | 2016-10-10 13:35 | HOSPPROG ---
Hospitalist Progress Note Assessment/Plan: 71-year-old woman with multiple medical problems admitted by neurosurgery for a planned ACDF C3 through C6 # ACDF C3-C6 POD#1 - per nsg # factor 5 Leiden, history of DVT x2 * last DVT about 15 years ago * per Neurosurgery, okay to start prophylactic Lovenox 48 hours postop, Coumadin 7 days postop; start Lovenox in a.m. * SCDs, early ambulation * # morbid obesity # elevated blood pressure. Patient previously on Toprol and Maxzide. This was discontinued a year ago when her blood pressure stayed. Her blood pressure has been elevated during this hospital stay. Will add low-dose amlodipine, patient may need this as an outpatient until her blood pressure stabilized. * Norvasc 2.5 mg daily starting now # GERD # depression on Effexor # osteoporosis # chronic narcotic dependence # incontinent on oxybutynin Subjective: Patient new to me, chart review. Pain is adequately controlled she did well with physical therapy today Objective: Vital Signs Temp Pulse Resp BP Pulse Ox 37.0 C 80 18 160/88 H 93 10/10/16 11:53 10/10/16 11:53 10/10/16 11:53 10/10/16 11:53 10/10/16 11:53 Laboratory Results 10/08/16 04:55 10/08/16 04:55 10/09/16 10/10/16 10/11/16 05:59 05:59 05:59 Intake Total 3310 750 Output Total 2550 1450 Balance 760 -700 - Physical Exam Constitutional: no apparent distress Eyes: PERRL, EOMI Ears, Nose, Mouth, Throat: moist mucous membranes Cardiovascular: regular rate and rhythym Respiratory: no respiratory distress Gastrointestinal: normoactive bowel sounds Genitourinary: no bladder fullness Skin: warm ICD10 Worksheet Patient Problems: Problems Problem Status Diagnosed Arm numbness Acute Cervical radiculopathy Acute Epigastric abdominal pain Acute Weakness Acute
--- NOTE | 2016-10-10 16:33 | SOAPPROG ---
SOAP Progress Note Assessment/Plan: Assessment: Doing well postop. Anticipate discharge tmrw. Xrays looked great but she has expected soft tissue swelling at operative site. She is swallowing pretty well and has little pain. Plan: 10/10/16 16:32 Subjective: Doing very well postop. HTN remains an issue and hospitalists are treating this Objective: Vital Signs Temp Pulse Resp BP Pulse Ox 37.0 C 110 H 18 153/89 H 90 L 10/10/16 16:00 10/10/16 16:00 10/10/16 16:00 10/10/16 16:00 10/10/16 16:00 Laboratory Results 10/08/16 04:55 10/08/16 04:55 10/09/16 10/10/16 10/11/16 05:59 05:59 05:59 Intake Total 3310 750 Output Total 2550 1450 Balance 760 -700 MAEW incision CDI ICD10 Worksheet Patient Problems: Problems Problem Status Diagnosed Arm numbness Acute Cervical radiculopathy Acute Epigastric abdominal pain Acute Weakness Acute
--- NOTE | 2016-10-10 22:06 | CPEKG ---
Heart Rate: 150 RR Interval: 400 QRSD Interval: 72 QT Interval: 304 QTC Interval: 481 QRS [place]: 45 T Wave [place]: -13 EKG Severity - ABNORMAL ECG - EKG Impression: ATRIAL FIBRILLATION, V-RATE 103-176 EKG Impression: PROBABLE POSTERIOR INFARCT EKG Impression: NONSPECIFIC T ABNORMALITIES, LATERAL LEADS Electronically Signed By: Brina Brian 11-Oct-2016 16:48:58
[2016-10-10] MEDS ORDERED: NS 1,000 ML IV ONE (22:27)
[2016-10-10] MEDS ORDERED: DILTIAZEM 125 MG in D5W 125 ML IV SCH (22:30)
[2016-10-10] MEDS ORDERED: DILTIAZEM 25 MG/5 ML VIAL IVP ONE (22:30)
[2016-10-10 22:59] LABS: % IMMATURE GRANULYOCYTES 0.8 % (0.0-1.1); ABSOLUTE IMMATURE GRANULOCYTES 0.08 10^3/uL (0.00-0.10); ADD DIFF? NO; ADD MORPH? NO; ADD SCAN? NO; ATYPICAL LYMPHOCYTE FLAG 0 (0-99); FRAGMENT RBC FLAG 0 (0-99); HEMATOCRIT 42.2 % (38.0-47.0); LEFT SHIFT FLG 0 (0-99); LIPEMIA HEMOLYSIS FLAG 80 (0-99); MEAN CELL HEMOGLOBIN 32.2 pg (27.9-34.1); MEAN CELL HEMOGLOBIN CONCENTR. 33.2 g/dL (32.4-36.7); MEAN PLATELET VOLUME 9.9 fL (8.7-11.7); PLATELET CLUMPS FLAG 0 (0-99); PLATELET COUNT 310 10^3/uL (150-400); RED BLOOD CELL COUNT 4.35 10^6/uL (4.18-5.33); RED CELL DISTRIBUTION WIDTH 13.1 % (11.5-15.2)
[2016-10-10 23:06] LABS: ANION GAP 9 mEq/L (8-16); CALCIUM 9.1 mg/dL (8.5-10.4); CARBON DIOXIDE 27 mEq/l (22-31); CHLORIDE 104 mEq/L (97-110); CREATININE 0.9 mg/dL (0.6-1.0); GLOMERULAR FILTRATION RATE > 60; GLUCOSE 106 mg/dL (70-100); POTASSIUM 4.1 mEq/L (3.5-5.2); SODIUM 140 mEq/L (134-144)
[2016-10-10] MEDS ORDERED: IOPAMIDOL (ISOVUE 370) 100 ML BTL IV ONE (23:13)
--- NOTE | 2016-10-11 00:21 | CT ---
Contrast Enhanced CT Scan of the Chest CT (CT Angiography) Clinical History: 71-year-old female inpatient with history of a DVT and new-onset atrial fibrillatio n. Rule out PE.. Technique: Following the uncomplicated intravenous administration of 90 mLIsovue-300, a multidetector helical CT scan was obtained from the base of the neck inferiorly to the upper abdomen during peak a rterial phase, with images reformatted in soft tissue, lung, liver, and bone windows, and are reforma tted at 1.25 mm and 4/3 mm increments. Multiplanar reconstructions were reviewed on the workstation. The DFOV is 36.8 cm. Dose reduction techniques were utilized. Comparison Studies: Chest radiography dated October 04, 2016 at 8:04 p.m., and unenhanced CT imaging of the chest dated June 30, 2013. Findings: CT Angiography: The main pulmonary artery, the main right and left pulmonary arteries, and the first and second order pulmonary segments are contrast-opacified, with no filling defect to suggest acute o r chronic thromboemboli. There is no interventricular septum deviation, nor is there any reflux of co ntrast into the intrahepatic IVC. The ascending and descending thoracic aorta, as well as the visuali zed upper abdominal aorta are normal in caliber, with no aneurysm or dissection. The anatomic arrange ment of the great vessels off the aortic arch is notable for a bovine configuration with a common luis gin of the right innominate and the left common carotid artery. The heart is mildly enlarged. There i s some minimal atherosclerotic calcification of the distal left circumflex coronary artery. The salma cardium is normal. Contrast-Enhanced CT Scan of the Chest: The lungs are clear of infiltrate. There is a stable 6 mm sub pleural nodule in the anterior right upper lobe on series 6, image 84. There are some dependent subse gmental atelectatic changes seen posteriorly. There is no pleural effusion, pneumothorax, or pneumome diastinum. There is no pathologically-enlarged adenopathy. The visualized portions of the thyroid gla nd are unremarkable. There are postcholecystectomy clips in the right upper quadrant of the abdomen. There is mild hepatic steatosis. The osseous structures are age-appropriate. Impression: There is no CT evidence of pulmonary artery thromboemboli.
--- NOTE | 2016-10-11 00:35 | HOSPPROG ---
Hospitalist Progress Note Assessment/Plan: Called to see patient for new tachycardia. Patient seen on 10/10/16. Patient without CP or SOB. Feels slightly dizzy. Patient appears comfortable, NAD. Tachy HR 150's. ECG reveals a-fib with RVR. Old ECGs not available currently in EMR. Dilt gtt started, patient transferred to PCU. CTA ordered to r/o PE in setting of known F V Leiden - negative. Patient converted to sinus in transit to PCU. Will hold dilt gtt, start metop PO. 45 minutes of direct floor critical care time spent in caring for patient. Objective: Vital Signs Temp Pulse Resp BP Pulse Ox 36.9 C 90 16 123/74 H 95 10/10/16 23:47 10/10/16 23:47 10/10/16 23:47 10/10/16 23:47 10/10/16 23:47 Laboratory Results 10/10/16 22:45 10/10/16 22:45 10/09/16 10/10/16 10/11/16 05:59 05:59 05:59 Intake Total 3310 750 200 Output Total 2550 1450 Balance 760 -700 200 ICD10 Worksheet Patient Problems: Problems Problem Status Diagnosed Arm numbness Acute Cervical radiculopathy Acute Epigastric abdominal pain Acute Weakness Acute
[2016-10-11] MEDS: ATORVASTATIN CALCIUM 20 MG TAB PO SCH (01:09)
[2016-10-11] MEDS: METOPROLOL TARTRATE 25 MG TAB PO SCH ×2 (01:09→08:13)
[2016-10-11] MEDS: FAMOTIDINE 20 MG TAB PO SCH ×2 (01:10→08:13)
[2016-10-11] MEDS: SENNOSIDES/DOCUSATE SODIUM TAB PO SCH ×2 (01:10→08:13)
[2016-10-11] MEDS: oxyCODONE IR 5 MG TAB PO PRN ×4 (01:11→16:23)
[2016-10-11] MEDS: LEVOTHYROXINE 75 MCG TAB PO SCH (06:35)
--- NOTE | 2016-10-11 08:00 | NEUSURGPN ---
Assessment/Plan: A/P: 71 yo female that is s/p ACDF C3-C6 -was transferred to PCU yesterday d/t A fib. Now resolved. -PT/OT/ST pending -Continue hard collar -Optimize pain management -post op xrays show stable hardware, prevertebral swelling -OK for DC once cleared by IM -Please notfiy NS with any change in neuro/motor exam Subjective: Pt resting in bed, states pain well managed. swallowing improving Objective: AAOx3 NAD VSS MAEx4 Motor 5/5 BUE Incision cdi C collar on Urinary Catheter in Place: No Catheter Insertion Date: 10/08/16 - Physician Discussed Patient with : Maximiliano Neurosurgery Physical Exam - Vitals, I&O, Labs I and O 10/10/16 10/11/16 10/12/16 05:59 05:59 05:59 Intake Total 750 225 Output Total 1450 Balance -700 225 Intake: Oral (ml) 750 225 Output: Urine (ml) 1450 Toilet 1450 Other: Intake Quantity Yes Sufficient Number of Voids Toilet 3 1 Vital Signs Temp Pulse Resp BP Pulse Ox 36.5 C 77 14 133/75 H 98 10/11/16 07:44 10/11/16 07:44 10/11/16 07:44 10/11/16 07:44 10/11/16 07:44 Laboratory Results 10/10/16 22:45 10/10/16 22:45 ICD10 Worksheet Patient Problems: Problems Problem Status Diagnosed Arm numbness Acute Cervical radiculopathy Acute Epigastric abdominal pain Acute Weakness Acute
[2016-10-11] MEDS: SULFAMETHOX/TMP 400/80 MG 1 TAB PO SCH (08:13)
[2016-10-11] MEDS: PANTOPRAZOLE SODIUM 40 MG TAB PO SCH (08:13)
[2016-10-11] MEDS ORDERED: ENOXAPARIN 120 MG/0.8 ML SYR SC SCH (09:00)
[2016-10-11] MEDS: OXYBUTYNIN 5 MG EXT REL TAB PO SCH (09:53)
--- NOTE | 2016-10-11 10:09 | ECHO ---
[id number] + + [address] : : [place] [address] : : [phone] + + Adult Echocardiographic Report + ----+ :Name: NARDA DELGADO CStudy Date: 10/11/2016 08:31 AM : : Hospital Admission Number: [id number] Location: 201: :: 1945 Gender: Female Height: 65 in : :Age: 71 yrs Race: WH Weight: 255 lb : :Reason For Study: New A Fib : : BSA: 2.2 meters2 : :History: Post op neck surgery : + ----+ MMode/2D Measurements & Calculations IVSd: 0.78 cm LVIDd: 5.4 cm FS: 26.3 % Ao root diam: 3.3 cm LVPWd: 0.87 cm LVIDs: 4.0 cm EDV(Teich): 140.2 ml LA dimension: 3.8 cm ESV(Teich): 68.7 ml EF(Teich): 51.0 % Normal Measurement Values: + + :LVIDd (3.5-5.7cm) IVSd (0.6-1.1cm) LVPWd (0.6-1.1cm) Aortic Root (2.0-3.7cm)Left Atrium (1.5-4.0cm): :LV Vol(d) (76-115ml) LV Vol(s) (29-48ml) Ejec Fraction (50-65%)PV Gibran (0.6- 1.2m/s) TV Gibran (0.4-1.0m/s) : :MV E Gibran (0.8-1.0m/s)MV A Gibran (0.3-1.0m/s)LVOT Gibran (0.7-1.2m/s) Asc Ao Gibran ( 0.9-1.8m/s) : + + Doppler Measurements & Calculations MV E max gibran: 70.1 cm/sec Ao V2 max: 114.0 cm/sec MV A max gibran: 75.5 cm/sec Ao max P.2 mmHg MV E/A: 0.93 Left Ventricle The left ventricle is normal in size. There is normal left ventricular wall thickness. Left ventricular systolic function is normal. Ejection Fraction = 60-65%. Right Ventricle The right ventricle is normal in size and function. Atria The left atrial size is normal. Right atrial size is normal. The interatrial septum is intact with no evidence for an atrial septal defect. Mitral Valve The mitral valve is normal in structure and function. There is no evidence of mitral valve prolapse. There is no mitral valve stenosis. There is mild mitral regurgitation. Tricuspid Valve Normal tricuspid valve. Aortic Valve The aortic valve opens well. There is no aortic stenosis. There is no aortic insufficiency. Pulmonic Valve The pulmonic valve is normal in structure and function. There is no pulmonic valvular regurgitation. Great Vessels The aortic root is normal size. Pericardium/Pleural There is no pericardial effusion. Conclusion A complete two-dimensional transthoracic echocardiogram was performed (2D, M-mode, Doppler and color flow Doppler). Technically difficult - pt flat and large BSA. Left ventricular systolic function is normal. Ejection Fraction = 60-65%. There is mild mitral regurgitation. Final Reading Physician: Ariana Zaldivar signed on 10/11/2016 10:08 AM Ordering Physician: Jose Parker Performed By: Yana Gutierrez RDCS
--- NOTE | 2016-10-11 10:23 | HOSPPROG ---
Hospitalist Progress Note Assessment/Plan: 71-year-old woman with multiple medical problems admitted by neurosurgery for a planned ACDF C3 through C6 # ACDF C3-C6 POD#1 - per nsg # factor 5 Leiden, history of DVT x2 * last DVT about 15 years ago * per Neurosurgery, okay to start prophylactic Lovenox 48 hours postop, Coumadin 7 days postop; start Lovenox in a.m. * SCDs, early ambulation # AFIB: Asymptomatic. Spontaneously converted, 1st episode. Echo reviewed and within normal limits. Discussed with Dr. Hancock on-call physician. He recommends discharge with Toprol XL and follow-up in his clinic. She may need a Holter monitor down the road postop. In the meantime regarding anticoagulation see above. I did give patient instructions on how to contact Dr. Hancock office tomorrow to schedule a follow-up appointment if she has a different Cardiology she would prefer to see she can schedule that appointment. Sent message to patient's PCP. # morbid obesity # elevated blood pressure. Patient previously on Toprol and Maxzide. This was discontinued a year ago when her blood pressure stayed. Her blood pressure has been elevated during this hospital stay. Will add low-dose amlodipine, patient may need this as an outpatient until her blood pressure stabilized. * Norvasc 2.5 mg daily starting now # GERD # depression on Effexor # osteoporosis # chronic narcotic dependence # incontinent on oxybutynin Subjective: Asymptomatic AFib last night feels good this morning Objective: Vital Signs Temp Pulse Resp BP Pulse Ox 36.5 C 77 14 133/75 H 98 10/11/16 07:44 10/11/16 07:44 10/11/16 07:44 10/11/16 07:44 10/11/16 07:44 Laboratory Results 10/10/16 22:45 10/10/16 22:45 10/10/16 10/11/16 10/12/16 05:59 05:59 05:59 Intake Total 750 225 Output Total 1450 Balance -700 225 - Physical Exam Constitutional: no apparent distress, appears nourished Cardiovascular: regular rate and rhythym Respiratory: no respiratory distress Skin: normal color Neurologic: AAOx3 Psychiatric: interacting appropriately, not anxious ICD10 Worksheet Patient Problems: Problems Problem Status Diagnosed Arm numbness Acute Cervical radiculopathy Acute Epigastric abdominal pain Acute Weakness Acute
[2016-10-11] MEDS ORDERED: ENOXAPARIN 40 MG/0.4 ML SYR SC SCH (10:30)
[2016-10-11 11:58] VITALS: BP 119/66; PULSE 80; RESP 16; TEMP 98.4; O2SAT 94
== END 2016-10-11 16:52 | disposition home or self-care (01) | DRG 472 ==
LOC: F3N 15:40 → F2W 10-10 23:40
PROVIDERS: ADMIT Neurological Surgery; ATTEND Neurological Surgery
PROC: 00NW0ZZ Release Cervical Spinal Cord, Open Approach (ICD-10-PCS; principal; 2016-10-08 10:30)
PROC: 0RB30ZZ Excision of Cervical Vertebral Disc, Open Approach (ICD-10-PCS; principal; 2016-10-08 10:30)
PROC: 0RG20A0 Fusion of 2 or more Cervical Vertebral Joints with Interbody Fusion Device, Anterior Approach, Anterior Column, Open Approach (ICD-10-PCS; principal; 2016-10-08 10:30)
DX: M47.12 Other spondylosis with myelopathy, cervical region (principal); M48.02 Spinal stenosis, cervical region; D68.2 Hereditary deficiency of other clotting factors; K21.9 Gastro-esophageal reflux disease without esophagitis; M81.0 Age-related osteoporosis without current pathological fracture; F32.9 Major depressive disorder, single episode, unspecified; I48.91 Unspecified atrial fibrillation; E66.01 Morbid (severe) obesity due to excess calories; Z68.41 Body mass index [BMI] 40.0-44.9, adult; Z86.718 Personal history of other venous thrombosis and embolism
CPT/HCPCS: 92526-GN; 92610-GN; 96365; 97116-GP; 97161-GP; 97165-GO; 97530-GO; 97530-GP; 97535-GO; C1713; G0378; G8978-GP-CJ; G8979-GP-CI; G8980-GP-CI; G8987-GO-CI; G8987-GO-CK; G8988-GO-CI; G8989-GO-CI; G8996-GN-CI; G8997-GN-CI; J0690; J0696; J1170; J1650; J2250; J2405; J2704; J3010; J3490; Q9967

== ENCOUNTER → 2016-11-13 | Outpatient (CLI) | payer OTHER, MEDICARE | LOC: FIMAGING 16:02 | PROVIDERS: ATTEND Physician Assistant | DX: Z09 Encounter for follow-up examination after completed treatment for conditions other than malignant neoplasm (principal); Z98.1 Arthrodesis status; M25.532 Pain in left wrist ==

== ENCOUNTER 2016-11-20 15:11 | Inpatient (IN) | payer OTHER, MEDICARE ==
[2016-11-20] MEDS ORDERED: NALOXONE HCL 0.4 MG/ML INJ IVP PRN (16:11)
[2016-11-20] MEDS ORDERED: LORazepam 2 MG/ML INJ IVP PRN (16:11)
[2016-11-20] MEDS ORDERED: LACTULOSE 20 GM/30 ML UDCUP PO PRN (16:11)
[2016-11-20] MEDS ORDERED: ONDANSETRON 4 MG/2 ML VIAL IVP PRN (16:11)
[2016-11-20] MEDS ORDERED: BISACODYL 10 MG SUPP PR PRN (16:11)
[2016-11-20] MEDS ORDERED: PHYTONADIONE 10 MG/ML AMP SC ONE (16:11)
[2016-11-20] MEDS ORDERED: LORazepam 0.5 MG TAB PO PRN (16:11)
[2016-11-20] MEDS ORDERED: HYDROmorphONE/DILAUDID 1 MG/ML SYR IVP PRN (16:11)
[2016-11-20] MEDS ORDERED: ONDANSETRON DISINTEGRATING 4 MG TAB PO PRN (16:11)
[2016-11-20] MEDS ORDERED: ACETAMINOPHEN 325 MG TAB PO PRN (16:11)
[2016-11-20] MEDS ORDERED: MAGNESIUM HYDROXIDE 30 ML UDCUP PO PRN (16:11)
[2016-11-20] MEDS ORDERED: diphenhydrAMINE 25 MG CAP PO PRN (16:11)
[2016-11-20] MEDS ORDERED: HYDROmorphONE/DILAUDID 6 MG/30 ML PCA IV PRN (16:11)
--- NOTE | 2016-11-20 16:52 | CPEKG ---
Heart Rate: 84 RR Interval: 714 P-R Interval: 148 QRSD Interval: 86 QT Interval: 400 QTC Interval: 473 P [place]: 50 QRS [place]: 74 T Wave [place]: 75 EKG Severity - BORDERLINE ECG - EKG Impression: SINUS RHYTHM EKG Impression: BORDERLINE T ABNORMALITIES, ANT-LAT LEADS Electronically Signed By: Lee Hamilton 22-Nov-2016 18:25:47
[2016-11-20] MEDS ORDERED: PHYTONADIONE 10 MG in NS 50 ML IV ONE (17:00)
--- NOTE | 2016-11-20 18:03 | GHP ---
[f rep st] HISTORY AND PHYSICAL DATE OF ADMISSION: 11/20/2016 REASON FOR ADMISSION: Cervical kyphosis following anterior cervical diskectomy and fusion. HISTORY OF PRESENT ILLNESS: The patient is a 71-year-old female with a history of factor V Leiden d eficiency and hypothyroidism, and she takes Coumadin for the last 40 years for factor V Leiden defic iency. She has not had a blood clot related to this in probably 40 years. She had progressive weak ness of both hands, loss of him tech strength, and ataxia and urinary leakage, and she was [facility] to [facility] in early October and underwent an anterior cervical diskectomy and fusion at C3-4,4-5, 5-6 without complication and her symptoms have all improved. Clinically, she is actua lly doing quite well, but she came to clinic for routine postoperative visit and x-rays demonstrated progressive cervical kyphosis with telescoping of her vertebral bodies down around the implants at C4-5, 5 6 with loosening of fixation at C4 and C5. The C3 and C6 screws remain in place, and plate was in contact with these vertebral bodies. Because of this, we felt that she needed to have a post erior fixation procedure, and she was admitted to the hospital to undergo surgery tomorrow on a semi urgent basis. She is on Coumadin, and her last dose was on Wednesday night. PAST MEDICAL HISTORY: Significant for morbid obesity, factor V Leiden, hypothyroidism, lumbar degen erative disk disease, as well as cervical stenosis and cervical disk disease. MEDICATIONS: Chronically are Fosamax, Synthroid, multivitamins, Prilosec, Zofran, Zocor, Bactrim, E ffexor, and Coumadin. ALLERGIES: None. FAMILY HISTORY: Coronary artery disease and lung cancer. SOCIAL HISTORY: She is but , and her children are grown. Her son and granddaruddy belcher were in the room at the time of my visit. She does not smoke or use drugs, but she does have 1/2 glass of wine per day. REVIEW OF SYSTEMS: She denies any new focal weakness. Her arms are stronger following the surgery. She has a little bit of discomfort in the left biceps region. There was still some tingling in th e left hand, but her arms are much better than prior to the last surgery. PHYSICAL EXAMINATION: VITAL SIGNS: Blood pressure 115/75, MAP is 88, heart rate is 101, respirator y rate 16, O2 sat is 92%, temperature is 36.7. NEUROLOGIC: Her eyes were open. She follows comman ds bilaterally. She has good strength in the deltoids, biceps, triceps, wrist extensors, him tech, and hand intrinsics. Her plantar flexors, extensor hallucis longus, and tibialis anterior are 5/5. Her sensation is intact. Cervical collar is in place. Her incision is well healed. ASSESSMENT: The patient has developed cervical kyphosis following ACDF and due to failure screw bon e interface at C4-5 and C5-6, and she requires admission to the hospital for posterior fixation to e nsure no progressive cervical deformity. It is our intent to simply do posterior cervical arthrodes is, and this will be done semiurgently tomorrow. We will get an MRI of the cervical spine tonight t o look at the caliber of her spinal canal to ensure that decompression is not also necessary. The r isks of the procedure, including the risks of progressive kyphosis, failure of fixation, pseudoarthr osis have been discussed. She understands these, and she is willing to proceed with surgery. /[id number]/MODL
[2016-11-20 18:13] LABS: % IMMATURE GRANULYOCYTES 0.2 % (0.0-1.1); ABSOLUTE IMMATURE GRANULOCYTES 0.02 10^3/uL (0.00-0.10); ADD DIFF? NO; ADD MORPH? NO; ADD SCAN? NO; ATYPICAL LYMPHOCYTE FLAG 0 (0-99); FRAGMENT RBC FLAG 0 (0-99); HEMATOCRIT 43.6 % (38.0-47.0); HEMOGLOBIN 14.5 g/dL (12.6-16.3); LEFT SHIFT FLG 0 (0-99); LIPEMIA HEMOLYSIS FLAG 80 (0-99); MEAN CELL HEMOGLOBIN 31.3 pg (27.9-34.1); MEAN CELL HEMOGLOBIN CONCENTR. 33.3 g/dL (32.4-36.7); MEAN CELL VOLUME 94.2 fL (81.5-99.8); MEAN PLATELET VOLUME 10.3 fL (8.7-11.7); PLATELET CLUMPS FLAG 0 (0-99); PLATELET COUNT 327 10^3/uL (150-400); RED BLOOD CELL COUNT 4.63 10^6/uL (4.18-5.33); RED CELL DISTRIBUTION WIDTH 13.2 % (11.5-15.2)
[2016-11-20 19:54] LABS: ALANINE AMINOTRANSFERASE 26 IU/L (9-52); ALBUMIN 3.7 g/dL (3.5-5.0); ALKALINE PHOSPHATASE 113 IU/L (38-126); ANION GAP 10 mEq/L (8-16); ASPARTATE AMINOTRANSFERASE 29 IU/L (14-46); BILIRUBIN,TOTAL 0.7 mg/dL (0.1-1.4); CALCIUM 9.1 mg/dL (8.5-10.4); CARBON DIOXIDE 25 mEq/l (22-31); CHLORIDE 102 mEq/L (97-110); CREATININE 0.8 mg/dL (0.6-1.0); GLOMERULAR FILTRATION RATE > 60; GLUCOSE 109 mg/dL (70-100); POTASSIUM 3.8 mEq/L (3.5-5.2); SODIUM 137 mEq/L (134-144); TOTAL PROTEIN 6.3 g/dL (6.3-8.2)
[2016-11-20] MEDS: SENNOSIDES/DOCUSATE SODIUM TAB PO SCH (20:12)
[2016-11-20] MEDS ORDERED: GADOBUTROL 10 ML VIAL IVP ONE (21:48)
[2016-11-21] MEDS ORDERED: ceFAZolin 2 GM/DEXTROSE 100 ML IV ONE (08:00)
[2016-11-21] MEDS: SENNOSIDES/DOCUSATE SODIUM TAB PO SCH ×2 (08:22→20:31)
[2016-11-21] MEDS ORDERED: THROMBIN (BOVINE) 20,000 UNIT VIAL TP ONE ×2 (08:53→09:29)
[2016-11-21] MEDS ORDERED: BUPIVACAINE/EPI 0.25% 30 ML SDV ONE ×2 (08:53→09:31)
[2016-11-21] MEDS ORDERED: AVITENE POWDER 1 GM JAR TP ONE (08:53)
[2016-11-21] MEDS ORDERED: BACITRACIN 50,000 UNITS/10 ML SYR IRR ONE (08:54)
[2016-11-21] MEDS ORDERED: CEFAZOLIN 2 GM/DEXTROSE/100 ML BAG IV ONE (09:09)
--- NOTE | 2016-11-21 09:20 | NEUSURGPN ---
Date of Surgery: 11/21/16 Post Op Day: 0 Assessment/Plan: Assessment: 71 yo female with hx of ACDF C3-C6 that has developed cervical Kyphosis thru anterior construct that is scheduled to get a posterior C spine fusion C3-C7 today Plan: -pt prepped for surgery -labs reviewed -INR pending -collar in place -consents signed and risks/benefits reviewed -pt understands and agrees -pt seen by Dr Viera as well -call with any questions or concerns Subjective: No new complaints or concerns. No macdonald/cp/sob/abd or gu complaints. No f/c/n/v/ d. Objective: AAO x 3, PERRLA/EOMI no droop CN 2-12 grossly intact +lt touch 5/5 BUE/BLE = CDI Neuro Check Frequency: per routine Urinary Catheter in Place: No - Physician Discussed Patient with DrEmili: Maximiliano Patient Seen by : Maximiliano Neurosurgery Physical Exam - Vitals, I&O, Labs I and O 11/20/16 11/21/16 11/22/16 05:59 05:59 05:59 Intake Total 450 Balance 450 Weight 116.93 kg Intake: IV Infused (ml) 450 NS W/ 20 KCl/L 1,000 ml @ 450 75 mls/hr IV CONT WILLY Rx #:[id number] Other: Number of Voids Toilet 3 Vital Signs Temp Pulse Resp BP Pulse Ox 36.9 C 85 16 145/75 H 97 11/21/16 04:00 11/21/16 04:00 11/21/16 04:00 11/21/16 04:00 11/21/16 04:00 Laboratory Results 11/20/16 18:04 11/20/16 18:04 ICD10 Worksheet Patient Problems: Problems Problem Status Onset Arm numbness Acute Cervical radiculopathy Acute Epigastric abdominal pain Acute Weakness Acute
[2016-11-21 09:22] LABS: INR 1.46 (0.83-1.16); PROTIME(PATIENT) 17.7 SEC (12.0-15.0)
[2016-11-21] MEDS ORDERED: DIAZEPAM 10 MG/2 ML SYR IVP PRN (09:22)
[2016-11-21] MEDS ORDERED: MIDAZOLAM 2 MG/2 ML VIAL ONE (09:35)
[2016-11-21] MEDS ORDERED: ROCURONIUM 50 MG/5 ML VIAL ONE (09:36)
[2016-11-21] MEDS ORDERED: DEXAMETHASONE 4 MG/ML VIAL ONE (09:36)
[2016-11-21] MEDS ORDERED: SUCCINYLCHOLINE CHLORIDE*ANESTHESIA ONLY*200 MG/10 ML SYR IVP ONE (09:36)
[2016-11-21] MEDS ORDERED: ONDANSETRON 4 MG/2 ML VIAL ONE (09:36)
--- NOTE | 2016-11-21 09:36 | SOAPPROG ---
SOAP Progress Note Assessment/Plan: Post Op Visit: S: Awake and alert. NAD. Pt with expected neck pain O: AFVSS/PERRLA/EOMI no droop CN 2-12 grossly intact +lt touch 5/5 BUE/BLE = CDI JENNIFER in place A/P: 71 yo female that is s/p PSF C3-C7 -orders in place -call with any questions or concerns -pt seen by Dr Viera 11/21/16 09:34 Objective: Vital Signs Temp Pulse Resp BP Pulse Ox 36.9 C 85 16 145/75 H 97 11/21/16 04:00 11/21/16 04:00 11/21/16 04:00 11/21/16 04:00 11/21/16 04:00 Laboratory Results 11/20/16 18:04 11/20/16 18:04 11/20/16 11/21/16 11/22/16 05:59 05:59 05:59 Intake Total 450 Balance 450 PT 17.7 SEC (12.0-15.0) H 11/21/16 04:55 INR 1.46 (0.83-1.16) H 11/21/16 04:55 ICD10 Worksheet Patient Problems: Problems Problem Status Onset Arthrodesis status Acute Arm numbness Acute Cervical radiculopathy Acute Epigastric abdominal pain Acute Weakness Acute - ICD10 Problem Qualifiers (1) Arthrodesis status
[2016-11-21] MEDS ORDERED: LIDOCAINE 2% 5 ML SDV ONE (09:37)
[2016-11-21] MEDS ORDERED: fentaNYL 100 MCG/2 ML INJ ONE ×3 (09:38→13:01)
[2016-11-21] MEDS ORDERED: PROPOFOL/EMULSION 500 MG/50 ML BOTTLE IV ONE ×2 (09:38→10:33)
[2016-11-21] MEDS ORDERED: PHENYLEPHRINE 10 MG/ML SDV ONE (10:29)
[2016-11-21] MEDS ORDERED: SUGAMMADEX SODIUM 200 MG/2 ML VIAL IVP ONE ×2 (12:12)
[2016-11-21] MEDS ORDERED: HYDROmorphONE/DILAUDID 2 MG/ML INJ ONE ×2 (13:01→13:02)
--- NOTE | 2016-11-21 14:00 | GOP ---
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 POSTOPERATIVE DIAGNOSIS: Cervical kyphosis with cervical stenosis C3-4 and cervical stenosis C6-7. PROCEDURE PERFORMED: FINDINGS: ESTIMATED BLOOD LOSS: 200 cc. DESCRIPTION OF PROCEDURE: Patient was taken to the operating room and placed in the supine position . General anesthesia was begun. She was flipped prone onto the Chandrakant table after the Taswell he ad frame had been applied. She was wrapped in a sheet and towel clamps were applied. Care was take n to pad all points of contact. The back of her head was clipped. She was firmly affixed to the ta ble with the neck in a neutral position and the occiput flexed. She was sterilely prepped and drape d in the usual fashion. Made a midline incision from the spinous process of C2 down to the spinous process of T1. The subcutaneous tissue was dissected using Bovie cautery down through the midline, and there was really very little bleeding. We dissected the paraspinal muscles in a subperiosteal f ashion off the lamina of C3, C4, C5, C6, and C7. We preserved the attachments of C2 and the attachm ents of C2 to C3. We denuded and decorticated the lateral masses at C3-4, 4-5, 5-6, and 6-7 to crea te arthrodesis. There, we attached the Stealth reference frame to C7, and using frameless Stealth s tereotaxy, placed pedicle screws bilaterally at C7, and we were happy with these screws. We then pl aced 14 mm lateral mass screws at C3, C4, and C5. We did use a Stealth guidance to help suggest our trajectories, but we did not navigate these screws. We placed 12 mm screws bilaterally in the late ral masses of C6, and we then performed an spin. All the hardware was in excellent posit ion. For the left C3 lateral mass screw, however, the Tulip set somewhat ventral compared to the C3 screw. We tightened the C4 screw to set it deeper, but I still was not pleased with the ventral of fset. Naturally, complete correction of kyphosis would improve this, but I did not think it was goo d to put this much of a arm on the C3 screw on the left-hand side. We used a 60 mm pablo o n the right and placed a lordotic 60 mm pablo, and then got some catholic of lordosis. But I actua lly then, because of the patient's anatomy, removed the 14 mm screw on the left and chose a 16 mm, c orrecting this offset, and the 16 mm screw looked fine. There was still a little bit of ventral off set that, when the pablo was reduced into the tulip, would also correct her kyphosis. We put a 55 mm pablo down on the left-hand side and final tightened all the cap screws according to company specifica tion. We did likewise on the right. We decorticated all of the lamina posterolaterally bilaterally and harvested all the spinous processes at C4, C5, and C6 for autologous grafting purposes. We the n opened the ligamentum flavum at C6-7 and decompressed the thecal sac there by removing the inferio r susy-lamina of C6 and the very rostral-most lamina of C7, and got a nice central decompression at C6-7. We then did likewise at C3-4, where we removed all the C4 lamina and harvested this for autol ogous grafting purposes, and used this to undercut the C3 lamina and remove the hypertrophic ligamen amelia flavum. We wanted to do our best to preserve much of C3 and simply undercut the lamina to remov e the hypertrophied ligamentum flavum, and we were able to preserve C3 yet undercut the lamina to re solve her stenosis there. We then took bony autograft and placed it posterolaterally bilaterally fr om C3 to C7, as well as BMP. We used a single 2 mg dose of BMP. We placed a subfascial drain. Misty t a final x-ray. Closed the incision in multiple layers using Vicryl suture. Steri-Strips were adonis lied to the skin. The patient was reversed from anesthesia, extubated, and transferred to the [facility] room in stable condition. There were no complications. PROCEDURE: Posterior cervical fusion at C3-4 C4-5, C5-6, and C6-7 with posterior segmental hardware C3, C4, C5, C6, and C7, simple laminectomy at C3-4 and C6-7 for a total of 2 levels decompressed wi thout facetectomy, same incision bone graft harvest, spinal stereotaxy. COMPLICATIONS: None. INSTRUMENTATION USED: Medtronic Vertex instrumentation with 14 mm screws bilaterally at C4 and C5, 12 mm screws bilaterally at C6, and 18 mm screws at C7. We used a 16 mm screw on the left at C3 aft er removing the 14 mm screw that was there originally, and we used a 14 mm screw on the right at C3. INDICATIONS FOR THE PROCEDURE: The patient is an elderly female who suffers from extreme morbid obe sity, who underwent a successful 3-level ACDF at C3-4, 4-5, and 5-6 in early October and did well c linically with improvement in her arm strength. She had pre-existing cervical kyphosis, worse at C3 -4 and to some degree C4-5, which was corrected at the time of her surgery. While she was doing wel l clinically, she came to the office on and a new x-ray demonstrated buckling of the anteri or construct, collapse of C5 and C6, and some bony retropulsion and recurrent kyphosis back into her preoperative state. The plate was still firmly affixed at C3 and C6; [id number], there was a s ubacute failure occurring of the anterior construct. She held her Coumadin, and because of her clin ical status she went home, but was admitted yesterday to reverse the Coumadin and to plan for surger y this weekend. The case was reviewed with my partners at [facility], who agree that posterior fixation was required, and that nonoperative or watchful-waiting approac h was not reasonable. She was admitted for semi emergent or urgent surgery because of the progressi ve deformity that was occurring. An MRI was done demonstrating good decompression compared to the p revious appearance of her films, particularly at the C5-6 level. The kyphosis had created some recu rrent stenosis at C3-4 but there was also posterior ligamentous hypertrophy creating stenosis there. She had preexisting disease at C6-7 and moderately severe stenosis there with the spinal canal bette meter measuring 6.8 mm. This was present on her preoperative study, as well, but because we were ve nturing posteriorly, I suggested decompression at C6-7 and including C7 in the arthrodesis. Our mot ivation, therefore, was to treat stenosis at C3-4, pre-existing stenosis at C6-7, but also to paperback machine operator iorly fixate the spine so there is not complete failure of the anterior construct, which would be li fe threatening if this were to occur. She understood our plan for posterior fixation, as well as ad jacent segment decompression at C6-7 and posterior decompression at C3-4, and she did want us to pro ceed. The risk of screw and hardware failure, pseudoarthrosis, adjacent segment disease, vascular i njury, spinal fluid leak, nerve injury, and the possible need for future spine surgery was discussed . She understood that the kyphosis could continue despite posterior fixation, but this was the most reasonable way to try to prevent that. She understood, as well, the surgery would be more painful and take longer to recover from than the anterior approach alone. She did want us to proceed. /[id number]/MODL
[2016-11-21] MEDS ORDERED: LABETALOL HCL 5 MG/ML 20 ML MDV ONE (14:09)
[2016-11-21] MEDS ORDERED: LABETALOL HCL 5 MG/ML 20 ML MDV IVP ONE (15:00)
[2016-11-21] MEDS: NS W/ 20 KCl/L 1,000 ML IV SCH (15:18)
[2016-11-21] MEDS: FAMOTIDINE 20 MG/NACL 50 ML IV SCH (20:32)
[2016-11-21] MEDS: oxyCODONE IR 5 MG TAB PO PRN (20:32)
[2016-11-21] MEDS: morphINE SR 15 MG TAB PO SCH (20:32)
[2016-11-21] MEDS: DIAZEPAM 5 MG TAB PO PRN (22:59)
[2016-11-21] MEDS: HYDROCODONE/APAP 10/325 TAB PO PRN (23:00)
[2016-11-22] MEDS: NS W/ 20 KCl/L 1,000 ML IV SCH (04:39)
[2016-11-22] MEDS: HYDROCODONE/APAP 10/325 TAB PO PRN (04:39)
[2016-11-22 05:13] LABS: % IMMATURE GRANULYOCYTES 0.5 % (0.0-1.1); ABSOLUTE IMMATURE GRANULOCYTES 0.07 10^3/uL (0.00-0.10); ADD DIFF? NO; ADD MORPH? NO; ADD SCAN? NO; ATYPICAL LYMPHOCYTE FLAG 0 (0-99); FRAGMENT RBC FLAG 0 (0-99); HEMATOCRIT 39.6 % (38.0-47.0); HEMOGLOBIN 12.7 g/dL (12.6-16.3); LEFT SHIFT FLG 0 (0-99); LIPEMIA HEMOLYSIS FLAG 80 (0-99); MEAN CELL HEMOGLOBIN 30.8 pg (27.9-34.1); MEAN CELL HEMOGLOBIN CONCENTR. 32.1 g/dL (32.4-36.7); MEAN CELL VOLUME 95.9 fL (81.5-99.8); MEAN PLATELET VOLUME 10.5 fL (8.7-11.7); PLATELET CLUMPS FLAG 0 (0-99); PLATELET COUNT 332 10^3/uL (150-400); RED BLOOD CELL COUNT 4.13 10^6/uL (4.18-5.33)
[2016-11-22 05:24] LABS: ANION GAP 9 mEq/L (8-16); CALCIUM 8.6 mg/dL (8.5-10.4); CARBON DIOXIDE 25 mEq/l (22-31); CHLORIDE 107 mEq/L (97-110); CREATININE 0.6 mg/dL (0.6-1.0); GLOMERULAR FILTRATION RATE > 60; GLUCOSE 107 mg/dL (70-100); POTASSIUM 5.1 mEq/L (3.5-5.2); SODIUM 141 mEq/L (134-144)
[2016-11-22] MEDS: SENNOSIDES/DOCUSATE SODIUM TAB PO SCH ×2 (09:36→20:12)
[2016-11-22] MEDS: morphINE SR 15 MG TAB PO SCH ×2 (09:36→20:13)
[2016-11-22] MEDS: FAMOTIDINE 20 MG TAB PO SCH ×2 (09:40→20:12)
[2016-11-22] MEDS: FAMOTIDINE 20 MG/NACL 50 ML IV SCH (09:45)
--- NOTE | 2016-11-22 11:48 | NEUSURGPN ---
Date of Surgery: 11/21/16 Post Op Day: 1 Assessment/Plan: A/P: 71 yo female that is s/p PSF C3-C7 -PT/OT -CCollar -Lovenox POD#2, Coumadin POD#3 -post op XRays done this am, stable -JPx1 dw Dr. Viera Subjective: post op neck pain. tingling in fingers improving on right side. Objective: NAD VSS No facial droop EOMI MAEx4 BUE/BLE 5/5= +LT Catheter Insertion Date: 11/21/16 - Physician Discussed Patient with : Maximiliano Neurosurgery Physical Exam - Vitals, I&O, Labs I and O 11/21/16 11/22/16 11/23/16 05:59 05:59 05:59 Intake Total 450 2585 Output Total 3390 100 Balance 450 -805 -100 Weight 116.93 kg Intake: Oral (ml) 925 IV Intake (ml) 1400 IV Infused (ml) 450 260 NS W/ 20 KCl/L 1,000 ml @ 450 210 75 mls/hr IV CONT WILLY Rx #:[id number] ceFAZolin 1 GM/DEXTROSE 50 50 ml @ 200 mls/hr IV Q8H WILLY Rx#:[id number] Output: Urine (ml) 3050 100 Catheter 2900 100 Toilet 150 Estimated Blood Loss (ml) 200 Wound Drainage (ml) 140 Posterior Neck Chandrakant 140 Melvin Other: Number of Voids Toilet 3 Vital Signs Temp Pulse Resp BP Pulse Ox 36.7 C 86 20 105/72 94 11/22/16 07:48 11/22/16 07:48 11/22/16 07:48 11/22/16 07:48 11/22/16 07:48 Laboratory Results 11/22/16 04:24 11/22/16 04:24 ICD10 Worksheet Patient Problems: Problems Problem Status Onset Arthrodesis status Acute Arm numbness Acute Cervical radiculopathy Acute Epigastric abdominal pain Acute Weakness Acute
[2016-11-22] MEDS: DIAZEPAM 5 MG TAB PO PRN ×2 (14:04→20:12)
[2016-11-22] MEDS: oxyCODONE IR 5 MG TAB PO PRN ×2 (16:50→20:13)
[2016-11-22] MEDS: ATORVASTATIN CALCIUM 20 MG TAB PO SCH (20:13)
[2016-11-23] MEDS: oxyCODONE IR 5 MG TAB PO PRN ×4 (02:06→19:44)
[2016-11-23] MEDS: DIAZEPAM 5 MG TAB PO PRN ×2 (02:06→19:43)
[2016-11-23] MEDS: LEVOTHYROXINE 75 MCG TAB PO SCH (05:46)
--- NOTE | 2016-11-23 07:13 | NEUSURGPN ---
Assessment/Plan: Assessment: 71 yo female that is s/p PSF C3-C7 POD #2 Plan: -s/p posterior fusion C3-C7: pt with some neck pain -continue with collar at all times-tolerating well-no skin issues -PT/OT/ST-CPM -post op xrays reviewed that show improvement of alignment-reviewed with Dr Viera -warning signs given -JENNIFER to be removed this am -plan for dc in next day or so -dc balloon artist to look for placement vs HHC -ok to start Lovenox today and Coumadin tomorrow -call with any questions or concerns -pt seen by Dr Viera 11/21/16 09:34 Subjective: Awake and alert. Pt states that she feels better. No macdonald/cp/sob/abd or gu complaints. No f/c/n/v/d. Objective: NAD VSS No facial droop EOMI MAEx4 BUE/BLE 5/5= JENNIFER in place-to be removed today +LT Neuro Check Frequency: per routine Urinary Catheter in Place: No Catheter Insertion Date: 11/21/16 - Physician Discussed Patient with DrEmili: Maximiliano Patient Seen by : Maximiliano Neurosurgery Physical Exam - Vitals, I&O, Labs I and O 11/22/16 11/23/16 11/24/16 05:59 05:59 05:59 Intake Total 2585 700 Output Total 3390 215 Balance -805 485 Intake: Oral (ml) 925 700 IV Intake (ml) 1400 IV Infused (ml) 260 NS W/ 20 KCl/L 1,000 ml @ 210 75 mls/hr IV CONT WILLY Rx #:[id number] ceFAZolin 1 GM/DEXTROSE 50 50 ml @ 200 mls/hr IV Q8H WILLY Rx#:[id number] Output: Urine (ml) 3050 100 Catheter 2900 100 Toilet 150 Estimated Blood Loss (ml) 200 Wound Drainage (ml) 140 115 Posterior Neck Chandrakant 140 115 Melvin Other: Intake Quantity Yes Sufficient Number of Voids Toilet 1 Vital Signs Temp Pulse Resp BP Pulse Ox 37.1 C 110 H 20 164/89 H 92 11/22/16 23:37 11/22/16 23:37 11/22/16 23:37 11/22/16 23:37 11/22/16 23:37 Laboratory Results 11/22/16 04:24 11/22/16 04:24 ICD10 Worksheet Patient Problems: Problems Problem Status Onset Arthrodesis status Acute Arm numbness Acute Cervical radiculopathy Acute Epigastric abdominal pain Acute Weakness Acute - ICD10 Problem Qualifiers (1) Arthrodesis status
[2016-11-23] MEDS ORDERED: ENOXAPARIN 40 MG/0.4 ML SYR SC SCH (09:00)
[2016-11-23] MEDS: SENNOSIDES/DOCUSATE SODIUM TAB PO SCH ×2 (10:15→19:43)
[2016-11-23] MEDS: SULFAMETHOX/TMP 400/80 MG 1 TAB PO SCH (10:15)
[2016-11-23] MEDS: OXYBUTYNIN 5 MG EXT REL TAB PO SCH (10:15)
[2016-11-23] MEDS: FAMOTIDINE 20 MG TAB PO SCH ×2 (10:15→19:44)
[2016-11-23] MEDS: morphINE SR 15 MG TAB PO SCH ×2 (10:16→19:44)
[2016-11-23] MEDS: POLYETHYLENE GLYCOL 3350 17 GM PKT PO PRN (10:21)
[2016-11-23] MEDS ORDERED: VENLAFAXINE XR 37.5 MG CAP PO SCH (14:41)
[2016-11-23] MEDS: ENOXAPARIN 40 MG/0.4 ML SYR SC SCH (19:43)
[2016-11-23] MEDS: ATORVASTATIN CALCIUM 20 MG TAB PO SCH (19:43)
[2016-11-24] MEDS: LEVOTHYROXINE 75 MCG TAB PO SCH (05:28)
[2016-11-24] MEDS: oxyCODONE IR 5 MG TAB PO PRN (05:28)
--- NOTE | 2016-11-24 07:32 | NEUSURGPN ---
Date of Surgery: 11/21/16 Post Op Day: 3 Assessment/Plan: Assessment: 71 yo female that is s/p PSF C3-C7 POD #3 Plan: -s/p posterior fusion C3-C7: pt with some expected neck pain -continue with collar at all times-tolerating well-no skin issues -PT/OT/ST-CPM -post op xrays reviewed that show improvement of alignment-reviewed with Dr Viera -warning signs given -JENNIFER site looks good -plan for dc today or in next day -dc technical planner to look for placement vs HHC -ok to start Lovenox yesterday and Coumadin today -call with any questions or concerns -pt seen by Dr Viera 11/21/16 09:34 Subjective: Awake and alert. NAD. Eating/drinking and voiding. No f/c/n/v/d. No macdonald/neck/ chest/abd or gu complaints. Objective: NAD VSS No facial droop EOMI MAEx4 BUE/BLE 5/5= JENNIFER site looks good +LT Neuro Check Frequency: per routine Urinary Catheter in Place: No Catheter Insertion Date: 11/21/16 - Physician Discussed Patient with : Maximiliano Patient Seen by : Maximiliano Neurosurgery Physical Exam - Vitals, I&O, Labs I and O 11/23/16 11/24/16 11/25/16 05:59 05:59 05:59 Intake Total 700 450 Output Total 215 Balance 485 450 Intake: Oral (ml) 700 450 Output: Urine (ml) 100 Catheter 100 Wound Drainage (ml) 115 Posterior Neck Chandrakant 115 Melvin Other: Intake Quantity Yes Sufficient Number of Voids Toilet 1 Vital Signs Temp Pulse Resp BP Pulse Ox 37.6 C 106 H 20 131/80 H 92 11/23/16 23:16 11/23/16 23:16 11/23/16 23:16 11/23/16 23:16 11/23/16 23:16 Laboratory Results 11/22/16 04:24 11/22/16 04:24 ICD10 Worksheet Patient Problems: Problems Problem Status Onset Arthrodesis status Acute Arm numbness Acute Cervical radiculopathy Acute Epigastric abdominal pain Acute Weakness Acute - ICD10 Problem Qualifiers (1) Arthrodesis status
[2016-11-24] MEDS: ENOXAPARIN 40 MG/0.4 ML SYR SC SCH ×2 (10:08→21:07)
[2016-11-24] MEDS: SENNOSIDES/DOCUSATE SODIUM TAB PO SCH ×2 (10:09→21:06)
[2016-11-24] MEDS: SULFAMETHOX/TMP 400/80 MG 1 TAB PO SCH (10:09)
[2016-11-24] MEDS: OXYBUTYNIN 5 MG EXT REL TAB PO SCH (10:10)
[2016-11-24] MEDS: FAMOTIDINE 20 MG TAB PO SCH ×2 (10:11→21:06)
[2016-11-24] MEDS: morphINE SR 15 MG TAB PO SCH ×2 (10:11→21:06)
[2016-11-24] MEDS: WARFARIN SODIUM 5 MG TAB PO SCH (10:12)
[2016-11-24] MEDS: ATORVASTATIN CALCIUM 20 MG TAB PO SCH (21:06)
[2016-11-24 23:46] VITALS: TEMP 98.3
[2016-11-25] MEDS: oxyCODONE IR 5 MG TAB PO PRN ×3 (02:22→09:04)
[2016-11-25] MEDS: LEVOTHYROXINE 75 MCG TAB PO SCH (05:31)
--- NOTE | 2016-11-25 08:17 | NEUSURGPN ---
Date of Surgery: 11/21/16 Post Op Day: 4 Assessment/Plan: Assessment: 71 yo female that is s/p PSF C3-C7 POD #4 Plan: -s/p posterior fusion C3-C7: pt with some expected neck pain -continue with collar at all times-tolerating well-no skin issues -dressing changed today by myself and Dr Viera -PT/OT/ST-CPM -post op xrays reviewed that show improvement of alignment-reviewed with Dr Viera -warning signs given -JENNIFER site looks good -plan for dc today or tomorrow -dc special events planner to look for placement vs HHC -on Lovenox/Coumadin -call with any questions or concerns -pt seen by Dr Viera 11/21/16 09:34 Subjective: Awake and alert. NAD. Eating/drinking and voiding. No f/c/n/v/d. Objective: NAD/No facial droop EOMI/MAEx4 BUE/BLE 5/5= JENNIFER site looks good +LT CDI Neuro Check Frequency: per routine Urinary Catheter in Place: No Catheter Insertion Date: 11/21/16 - Physician Discussed Patient with : Maximiliano Patient Seen by : Maximiliano Neurosurgery Physical Exam - Vitals, I&O, Labs I and O 11/24/16 11/25/16 11/26/16 05:59 05:59 05:59 Intake Total 450 1800 Balance 450 1800 Intake: Oral (ml) 450 1800 Other: Number of Voids Toilet 1 Vital Signs Temp Pulse Resp BP Pulse Ox 36.8 C 104 H 17 125/74 H 90 L 11/24/16 23:45 11/24/16 23:45 11/24/16 23:45 11/24/16 23:45 11/24/16 23:45 Laboratory Results 11/22/16 04:24 11/22/16 04:24 ICD10 Worksheet Patient Problems: Problems Problem Status Onset Arthrodesis status Acute Arm numbness Acute Cervical radiculopathy Acute Epigastric abdominal pain Acute Weakness Acute - ICD10 Problem Qualifiers (1) Arthrodesis status
[2016-11-25 08:54] VITALS: BP 110/59; PULSE 86; RESP 16; O2SAT 93
[2016-11-25] MEDS: FAMOTIDINE 20 MG TAB PO SCH (08:55)
[2016-11-25] MEDS: SULFAMETHOX/TMP 400/80 MG 1 TAB PO SCH (08:56)
[2016-11-25] MEDS: SENNOSIDES/DOCUSATE SODIUM TAB PO SCH (08:56)
[2016-11-25] MEDS: OXYBUTYNIN 5 MG EXT REL TAB PO SCH (08:57)
[2016-11-25] MEDS: WARFARIN SODIUM 5 MG TAB PO SCH (08:57)
[2016-11-25] MEDS: morphINE SR 15 MG TAB PO SCH (08:58)
[2016-11-25] MEDS: ENOXAPARIN 40 MG/0.4 ML SYR SC SCH (09:00)
[2016-11-25] MEDS: POLYETHYLENE GLYCOL 3350 17 GM PKT PO PRN (09:00)
--- NOTE | 2016-11-25 10:00 | PDIAF ---
- Diagnosis Diagnosis: s/p cervical fusion Code Status: Full Code - Medication Management Discharge Medications: Medications to Continue on Transfer Levothyroxine [Synthroid 75 mcg (*)] 75 mcg PO DAILY06 07/08/15 [Last Taken ] Omeprazole [Prilosec 20 mg] 20 mg PO BID 07/08/15 [Last Taken 11/20/16 AM DOSE] Simvastatin [Zocor] 40 mg PO HS 07/08/15 [Last Taken 11/19/16] Venlafaxine Xr [Effexor Xr 37.5MG (*)] 37.5 mg PO MOWEFR 07/08/15 [Last Taken ] Herbals/Supplements -Info Only 1 ea PO DAILY 10/05/16 [Last Taken 11/20/16] Oxybutynin Chloride [Ditropan Xl] 10 mg PO DAILY 10/05/16 [Last Taken 11/20/16] Sulfamethoxazole/Trimethoprim [Bactrim SS] 1 each PO DAILY 10/07/16 [Last Taken 11/20/16] Warfarin Sodium 5 mg PO DAILY 10/07/16 [Last Taken 11/18/16] Acetaminophen [Tylenol 325mg (*)] 650 mg PO Q4HRS PRN #0 tab 11/25/16 [Last Taken Unknown] Enoxaparin [Lovenox 40 MG (*)] 40 mg SC BID #5 syr 11/25/16 [Last Taken Unknown] Ondansetron Odt [Zofran Odt 4 mg (*)] 4 mg PO Q4HRS PRN #30 tab 11/25/16 [Last Taken Unknown] Sennosides/Docusate Sodium [Senokot-S] 1 - 2 tab PO BID #30 tab 11/25/16 [Last Taken Unknown] morphINE SR [Ms Contin/Oramorph 15 mg (*)] 15 mg PO BID #28 tab 11/25/16 [Last Taken Unknown] oxyCODONE IR [Oxycodone Ir (*)] 5 - 10 mg PO Q3HRS PRN #90 tab 11/25/16 [Last Taken Unknown] Pole Sander Operator Antibiotics: none Discharge Medications: Refer to the Discharge Home Medication list for PRN reason. PICC Care - Routine: N/A - Orders Services needed: Home Care, Registered Nurse, Physical Therapy, Occupational Therapy Home Care Face to Face: I certify that this patient was under my care and that I had the required [id number] encounter meeting the encounter requirements on the discharge day. My findings support the fact that the patient is homebound as defined in CMS Chapter 7 Medicare Benefits Manual 30.1.1, The condition of the patient is such that there exists a normal inability to leave home and consequently, leaving home would require a considerable and taxing effort. Oxygen: to keep 02 sat greater than 90% Diet Recommendation: no restrictions on diet Diet Texture: Regular Texture Diet Weigh Patient: weekly Flower: Not applicable Josemanuel Stockings Discontinue Date: when walking 200 yrds 3x per day Wound Care Instructions: leave steri strips on until follow up with Dr Viera for post op check Equipment: collar at all times - Follow Up Care Current Providers and Referrals: Billie Harvey NP [Primary Care Provider] - Marcio Viera MD [Medical Doctor] - (follow up in 2-3 weeks)
== END 2016-11-25 13:13 | disposition home health service (06) | DRG 472 ==
LOC: F3N 15:11
PROVIDERS: ADMIT Neurological Surgery; ATTEND Neurological Surgery
PROC: 00NY0ZZ Release Lumbar Spinal Cord, Open Approach (ICD-10-PCS; principal; 2016-11-21 10:15)
PROC: 0RG2071 Fusion of 2 or more Cervical Vertebral Joints with Autologous Tissue Substitute, Posterior Approach, Posterior Column, Open Approach (ICD-10-PCS; principal; 2016-11-21 10:15)
PROC: 4A10X4G Monitoring of Central Nervous Electrical Activity, Intraoperative, External Approach (ICD-10-PCS; principal; 2016-11-21 10:15)
PROC: 3E0V0GB Introduction of Recombinant Bone Morphogenetic Protein into Bones, Open Approach (ICD-10-PCS; principal; 2016-11-21 10:15)
PROC: 8E0WXBZ Computer Assisted Procedure of Trunk Region (ICD-10-PCS; principal; 2016-11-21 10:15)
DX: T84.216A Breakdown (mechanical) of internal fixation device of vertebrae, initial encounter (principal); M53.82 Other specified dorsopathies, cervical region; M48.02 Spinal stenosis, cervical region; Z98.1 Arthrodesis status; D68.51 Activated protein C resistance; Z79.01 Long term (current) use of anticoagulants; E66.01 Morbid (severe) obesity due to excess calories; Z68.41 Body mass index [BMI] 40.0-44.9, adult; E03.9 Hypothyroidism, unspecified; M51.36 Other intervertebral disc degeneration, lumbar region
CPT/HCPCS: 97116-GP; 97161-GP; 97166-GO; 97530-GO; A9585; C1713; G8978-GP-CJ; G8979-GP-CI; G8980-GP-CJ; G8987-GO-CJ; G8988-GO-CI; J0330; J0690; J1100; J1170; J1650; J2250; J2370; J2405; J2704; J3010; J3430; J3490

== ENCOUNTER → 2016-12-09 | Outpatient (CLI) | payer OTHER, MEDICARE | LOC: FIMAGING 12:42 | PROVIDERS: ATTEND Physician Assistant | DX: Z09 Encounter for follow-up examination after completed treatment for conditions other than malignant neoplasm (principal); Z98.1 Arthrodesis status ==

== ENCOUNTER → 2017-01-07 | Outpatient (CLI) | payer OTHER, MEDICARE | LOC: FIMAGING 11:32 | DX: Z09 Encounter for follow-up examination after completed treatment for conditions other than malignant neoplasm (principal); Z98.1 Arthrodesis status ==

== ENCOUNTER → 2017-02-15 | Outpatient (CLI) | payer OTHER, MEDICARE | LOC: FIMAGING 15:54 | PROVIDERS: ATTEND Neurological Surgery | DX: M54.12 Radiculopathy, cervical region (principal); Z98.1 Arthrodesis status ==

== ENCOUNTER → 2017-05-26 | Outpatient (CLI) | payer OTHER, MEDICARE | LOC: FIMAGING 16:37 | DX: Z09 Encounter for follow-up examination after completed treatment for conditions other than malignant neoplasm (principal); Z98.1 Arthrodesis status ==

== ENCOUNTER → 2017-06-01 | Outpatient (CLI) | payer OTHER, MEDICARE | LOC: FIMAGING 15:00 | PROVIDERS: ATTEND Physician Assistant | DX: M47.897 Other spondylosis, lumbosacral region (principal); M48.06 Spinal stenosis, lumbar region; Z98.1 Arthrodesis status ==

== ENCOUNTER → 2017-06-07 | Outpatient (CLI) | payer OTHER, MEDICARE | LOC: FIMAGING 13:52 | PROVIDERS: ATTEND Nurse Practitioner | DX: Z12.31 Encounter for screening mammogram for malignant neoplasm of breast (principal); Z80.3 Family history of malignant neoplasm of breast | CPT/HCPCS: G0202 ==

== ENCOUNTER 2018-05-13 06:48 | Day surgery (SDC) | payer OTHER, MEDICARE ==
--- NOTE | 2018-03-29 09:12 | GHP ---
[f rep st] PREOP HISTORY AND PHYSICAL DATE OF ADMISSION: 04/01/2018 CHIEF COMPLAINT: Umbilical hernia. HISTORY OF PRESENT ILLNESS: A 73-year-old woman with a history of DVT, factor V Leiden, hypertension , hyperlipidemia, had an umbilical hernia. In 2014, she underwent laparoscopic cholecystectomy with liver biopsy. She has a new hernia that she noticed about 3 weeks ago. She only has pain when weari ng a seat belt for a long period of time. She is able to reduce the hernia. She does have some cons tipation. PAST MEDICAL HISTORY: DVT, factor V Leiden deficiency, gastroesophageal reflux disease, hyperlipidem ia, hypertension. PAST SURGICAL HISTORY: Cervical fusion, cholecystectomy, left knee replacement, right patellar stabi lization, lumbar surgery, right total knee, tonsillectomy. MEDICATIONS: Reviewed; they include warfarin. ALLERGIES: No known drug allergies. FAMILY HISTORY: Significant for lung cancer, dementia, heart attack, hypertension, angina, congestiv e heart failure. REVIEW OF SYSTEMS: Ten-point review of systems negative, except per HPI. 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 She has 2 children. She denies tobacco use. PHYSICAL EXAMINATION: GENERAL: Well-nourished, well-appearing female in no acute distress. HEENT: Normocephalic. Pupils equal and round. No scleral icterus. Mucous membranes moist. No gross hear ing deficits. CARDIAC: Regular rate. No peripheral edema. CHEST: Clear to auscultation bilateral ly. No increased work of breathing. ABDOMEN: Soft, nontender, nondistended. Umbilical hernia abou t 2 cm at the 12 o'clock position. SKIN: Warm and dry. MUSCULOSKELETAL: Normal gait. Normal nail s. PSYCHIATRIC: Mood and affect normal. NEUROLOGIC: Grossly intact. IMPRESSION AND PLAN: A 73-year-old woman with umbilical hernia. I will take her to the operating ro om for an open umbilical hernia repair with likely mesh. The risks and benefits including, but not l imited to, stroke, heart attack, , blood clots, infection, bleeding, damage to surrounding struc tures were discussed. She will need to discontinue her warfarin 5 days prior to surgery. /[id number]/MODL
[2018-05-13] MEDS ORDERED: LR 1,000 ML IV ONE (07:03)
[2018-05-13] MEDS ORDERED: LIDOCAINE 1% 2 ML INJ ID PRN (07:03)
[2018-05-13] MEDS ORDERED: ceFAZolin 2 GM/DEXTROSE 100 ML IV ONE (07:03)
--- NOTE | 2018-05-13 07:17 | PDHPUP ---
History & Physical Update H&P update statement: This history and physical update is based on an assessment of the patient which was completed after admission or registration (within 24 hours), but prior to the surgery/procedure. H&P update: H&P reviewed & patient examined, changes noted (scratched her ankle last night)
[2018-05-13 07:58] LABS: INR 1.19 (0.83-1.16); PROTIME(PATIENT) 15.3 SEC (12.0-15.0)
[2018-05-13] MEDS ORDERED: BUPIVACAINE 0.5% 30 ML SDV ONE (08:07)
--- NOTE | 2018-05-13 09:13 | PDANEPAE ---
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 - Pulmonary History Hx COPD: No Hx Asthma/Reactive Airway Disease: No Hx Recent Upper Respiratory Infection: No Hx Oxygen in Use at Home: Yes O2 in Use at Home (L/minute): 2.L at noc with CPAP Hx Sleep Apnea: Yes Sleep Apnea Screening Result - Last Documented: Positive Pulmonary History Comment: JOSH with CPAP - Neurologic History Hx Cerebrovascular Accident: No Hx Seizures: No Hx Dementia: No - Endocrine History Hx Diabetes: No - Renal History Hx Renal Disorders: No - Liver History Hx Hepatic Disorders: No - Neurological & Psychiatric Hx Hx Neurological and Psychiatric Disorders: Yes Neurological / Psychiatric History Comment: left hand pins and needles - Cancer History Hx Cancer: No - Congenital Disorder History Hx Congenital Disorders: Yes Congenital History Comment: vascular disease - GI History Hx Gastrointestinal Disorders: No - Other Health History Other Health History: lasik. factor V leiden. distant hx DVT's - Chronic Pain History Chronic Pain: Yes (neck, lower back) - Surgical History Prior Surgeries: carpal tunnel,. bilat TKA. cervicle and lower back fusions with hardware ANE Review of Systems Review of Systems: - Exercise capacity METS (RN): 3 METS ANE Patient History - Allergies Allergies/Adverse Reactions: No Known Allergies Allergy (Unverified 03/25/18 11:23) - Home Medications Home Medications: Levothyroxine [Synthroid 75 mcg (*)] 07/08/15 [Last Taken 05/12/18] Omeprazole [Prilosec 20 mg] 07/08/15 [Last Taken 05/12/18] Simvastatin [Zocor] 07/08/15 [Last Taken 05/12/18] Herbals/Supplements -Info Only 10/05/16 [Last Taken 05/07/18] Oxybutynin Chloride [Ditropan Xl] 10/05/16 [Last Taken 05/13/18] Sulfamethoxazole/Trimethoprim [Bactrim SS] 10/07/16 [Last Taken 05/13/18] Warfarin Sodium 10/07/16 [Last Taken 05/07/18] Acetaminophen [Tylenol 325mg (*)] 03/25/18 [Last Taken 05/12/18] - NPO status NPO Since - Liquids (Date): 05/13/18 NPO Since - Liquids (Time): 05:00 NPO Since - Solids (Date): 05/12/18 NPO Since - Solids (Time): 22:00 - Smoking Hx Smoking Status: Never smoked - Family Anes Hx Family Hx Anesthesia Complications: none ANE Labs/Vital Signs - Vital Signs Blood Pressure: 156/71 Heart Rate: 79 Respiratory Rate: 16 O2 Sat (%): 94 Height: 165.1 cm Weight: 113.398 kg ANE Physical Exam - Airway Mallampati Score: Class 2 - ASA Status ASA Status: III ANE Anesthesia Plan Anesthesia Plan: general endotracheal anesthesia, GA w LMA
[2018-05-13] MEDS ORDERED: MIDAZOLAM 2 MG/2 ML VIAL ONE (09:15)
[2018-05-13] MEDS ORDERED: PROPOFOL 200 MG/20 ML VIAL ONE (09:16)
[2018-05-13] MEDS ORDERED: fentaNYL 100 MCG/2 ML INJ ONE ×3 (09:16→10:50)
[2018-05-13] MEDS ORDERED: ONDANSETRON 4 MG/2 ML VIAL ONE (09:17)
[2018-05-13] MEDS ORDERED: METOCLOPRAMIDE 10 MG/2 ML VIAL ONE (09:17)
[2018-05-13] MEDS ORDERED: ROCURONIUM 50 MG/5 ML VIAL ONE (09:17)
[2018-05-13] MEDS ORDERED: SUGAMMADEX SODIUM 200 MG/2 ML VIAL IVP ONE (09:57)
--- NOTE | 2018-05-13 10:17 | POSTOPPROG ---
Post Op Note Date of Operation: 05/13/18 Surgeon: Genesis Carmona All Source Analyst: xi Anesthesiologist: isabela Anesthesia: GET(General Endotracheal) Pre-op Diagnosis: umbilical hernia Post-op Diagnosis: incarcerated umbilical hernia Indication: 73 yo with umbilical hernia Procedure: umbilical hernia repair with mesh Findings: 2 cm defect Inf/Abcess present in the surg proc area at time of surgery?: No Depth: Superfical (Skin SQ) Specimen(s): none
[2018-05-13] MEDS ORDERED: DEXAMETHASONE 4 MG/ML VIAL IVP PRN (10:24)
[2018-05-13] MEDS ORDERED: NALOXONE HCL 0.4 MG/ML INJ IVP PRN (10:24)
[2018-05-13] MEDS ORDERED: LR 500 ML IV PRN (10:24)
--- NOTE | 2018-05-13 10:25 | POSTANESTH ---
Post Anesthetic Evaluation Cardiovascular Status: Normal, Stable Respiratory Status: Normal, Stable Level of Consciousness/Mental Status: Can Participate in Eval Pain Control: Adequate, Prn Tx Ordered Nausea/Vomiting Control: Adequate, Prn Tx Ordered Complications Possibly Related to Anesthesia: None Noted
--- NOTE | 2018-05-13 10:30 | GOP ---
DATE OF OPERATION: 05/13/2018 SURGEON: Genesis Carmona MD REFRIGERATION BRAZER/SOLDERER: Sowmya Fish PA-C. ANESTHESIA: James Jensen MD/general. PREOPERATIVE DIAGNOSIS: Umbilical hernia. POSTOPERATIVE DIAGNOSIS: Incarcerated umbilical hernia without gangrene or obstruction. PROCEDURE PERFORMED: Umbilical hernia repair with mesh. FINDINGS: 2.5 cm defect with a lot of omentum outside of the defect. Large hernia sac, composite ve ntral patch, 4.6 cm. SPECIMENS: None. ESTIMATED BLOOD LOSS: 5 cc. INDICATIONS: Yolande is a 73-year-old woman with a longstanding umbilical hernia. DESCRIPTION OF PROCEDURE: Patient was brought into the operating room, placed supine on the table an d general anesthesia was administered. Her abdomen was prepped and draped in the usual sterile fashi on. Infiltrated all sites with 0.5% Marcaine prior to making the incision. I made an incision under neath her umbilicus. I dissected down through the skin and subcutaneous tissues. I came around her umbilical stalk. To the left of her umbilicus, there was a fullness. I continued very careful disse ction in this area as I was unsure if there would be bowel or fat contained within the hernia sac. W e opened the hernia sac, and a lot of incarcerated omentum was found. I excised some of the omentum so that the remaining would go back into the abdominal cavity. I identified the fascial edges and cl eared them both above and below the peritoneum. I excised the hernia sac. I placed a piece of compo site ventral patch intraperitoneal and tacked this to the abdominal wall with 0 Surgilon. The fascia l defect closed with 0 Surgilon. I created a sudhakar-umbilicus with 3-0 Vicryl. I closed the skin with 3-0 Vicryl followed by 4-0 Monocryl. Mastisol, Steri-Strips and cotton ball were applied. She was a wakened in the operating room, extubated, and transferred to PACU in stable condition. /[id number]/MODL
[2018-05-13] MEDS: fentaNYL 100 MCG/2 ML INJ IVP PRN ×2 (10:38→10:47)
[2018-05-13 12:15] VITALS: BP 115/80
== END 2018-05-13 12:14 | disposition home or self-care (01) ==
LOC: FSGY 06:48
PROVIDERS: ATTEND Surgery
PROC: 0WUF0JZ Supplement Abdominal Wall with Synthetic Substitute, Open Approach (ICD-10-PCS; principal; 2018-05-13 08:30)
DX: K42.0 Umbilical hernia with obstruction, without gangrene (principal); D68.2 Hereditary deficiency of other clotting factors; I10 Essential (primary) hypertension; E78.5 Hyperlipidemia, unspecified; K21.9 Gastro-esophageal reflux disease without esophagitis; G47.33 Obstructive sleep apnea (adult) (pediatric); E66.01 Morbid (severe) obesity due to excess calories; Z68.41 Body mass index [BMI] 40.0-44.9, adult; Z79.01 Long term (current) use of anticoagulants; Z86.718 Personal history of other venous thrombosis and embolism; Z82.49 Family history of ischemic heart disease and other diseases of the circulatory system; Z96.653 Presence of artificial knee joint, bilateral
CPT/HCPCS: C1781; J0690; J2250; J2405; J2704; J2765; J3010

== ENCOUNTER 2018-06-04 16:36 | Emergency (ER) | payer OTHER, MEDICARE ==
[2018-06-04] MEDS ORDERED: NS 1,000 ML IV ONE (16:49)
[2018-06-04] MEDS ORDERED: ONDANSETRON 4 MG/2 ML VIAL IVP ONE (16:49)
--- NOTE | 2018-06-04 17:12 | EDPHY ---
H & P Stated Complaint: n/v/d x 1 week, hernia surgery 3 wks ago Time Seen by Provider: 06/04/18 16:49 HPI/ROS: CHIEF COMPLAINT: Vomiting and diarrhea HISTORY OF PRESENT ILLNESS: 73-year-old female with factor 5 Leiden deficiency presents with vomiting and diarrhea. Ventral hernia repair 3 weeks ago. [place] fine in the immediate postop period. Onset of vomiting and diarrhea 1 week ago. Able to tolerate oral fluids well now, but occasionally has dry heaves. 2 -3 episodes of loose stools daily, without blood. No abdominal pain. Shortness of breath, exertional, for several months, without recent change. No chest pain, cough or fever. REVIEW OF SYSTEMS: complete 10 point ROS reviewed and is negative except for the noted elements in the HPI - Personal History Current Tetanus Diphtheria and Acellular Pertussis (TDAP): Yes Tetanus Vaccine Date: doesn't know - Medical/Surgical History Hx Asthma: No Hx Chronic Respiratory Disease: No Hx Diabetes: No Hx Cardiac Disease: No Hx Renal Disease: No Hx Cirrhosis: No Hx Alcoholism: No Hx HIV/AIDS: No Hx Splenectomy or Spleen Trauma: No Other PMH: Obesity, chronic back pain, GALLBLADDER DISEASE. Factor 5 Leiden deficiency. hypothyroidism. HTN. anterior cervical fusion. hernia repair. blood thinner. sleep apnea. Hyperlipidemia. b knee replacements. pins in back. bulging discs. - Social History Smoking Status: Never smoked - Physical Exam Exam: General Appearance: Alert, pleasant Eyes: Pupils equal and round, no conjunctival pallor or injection ENT, Mouth: Mucous membranes moist Neck: Normal inspection Respiratory: Lungs are clear to auscultation Cardiovascular: Regular rate and rhythm Gastrointestinal: Abdomen is soft, mild epigastric tenderness Neurological: A&O, nonfocal, normal gait Skin: Warm and dry, no rash Extremities: Nontender, no pedal edema Psychiatric: Mood and affect normal Constitutional: Initial Vital Signs Temperature (C) 36.6 C 06/04/18 16:43 Heart Rate 99 06/04/18 16:43 Respiratory Rate 22 H 06/04/18 16:43 Blood Pressure 153/101 H 06/04/18 16:43 O2 Sat (%) 96 06/04/18 16:43 O2 Delivery Mode Room Air Allergies/Adverse Reactions: No Known Allergies Allergy (Verified 06/04/18 16:43) Home Medications: Medication Instructions Recorded Levothyroxine [Synthroid 75 mcg 07/08/15 (*)] Omeprazole [Prilosec 20 mg] 07/08/15 Simvastatin [Zocor] 07/08/15 Herbals/Supplements -Info Only 10/05/16 Oxybutynin Chloride [Ditropan Xl] 10/05/16 Sulfamethoxazole/Trimethoprim 10/07/16 [Bactrim SS] Warfarin Sodium 10/07/16 Acetaminophen [Tylenol 325mg (*)] 03/25/18 Hydrocodone/Acetaminophen [[place] 1 - 2 tab PO Q6H PRN #20 tab 05/13/18 5/325 (*)] Ondansetron Odt [Zofran Odt 4 mg 4 mg PO Q4 PRN #6 tab 06/04/18 (*)] Medical Decision Making - Diagnostics EKG Interpretation: EKG interpreted by me reveals normal sinus rhythm, rate 74, no ST or T segment changes. Interpretation: Normal EKG Imaging Results: Chest x-ray: NAD Imaging: I viewed and interpreted images myself ED Course/Re-evaluation: IV normal saline 1 L and Zofran 4 mg IV given. The patient felt much better after IV hydration and Zofran. Abdomen remains benign. Able to tolerate oral fluids well. Abdominal exam remains benign. Likely acute gastroenteritis, instructions given. Prescription for Zofran written. In regards to the patient 's ongoing shortness of breath, EKG and chest x-ray are unremarkable and oxygen saturation is normal. She is on Coumadin and D-dimer is normal. Protime is subtherapeutic, d/w pt. I do not feel that further evaluation for pulmonary embolism is indicated. I encouraged her to follow up with her primary care physician for further evaluation. Differential Diagnosis: Differential diagnosis includes though it is not limited to appendicitis, cholecystitis, diverticulitis, pyelonephritis, bowel perforation, small bowel obstruction. - Data Points Laboratory Results: Laboratory Results 06/04/18 17:00 06/04/18 17:00 Medications Given: Discontinued Medications Sodium Chloride (Ns) 1,000 mls @ 0 mls/hr IV EDNOW ONE; Wide Open PRN Reason: Protocol Stop: 06/04/18 16:50 Last Admin: 06/04/18 17:00 Dose: 1,000 mls Ondansetron HCl (Zofran) 4 mg IVP EDNOW ONE Stop: 06/04/18 16:50 Last Admin: 06/04/18 17:00 Dose: 4 mg Ondansetron HCl (Zofran Odt 4 Mg Prepack#2) 1 btl TAKEHOME EDNOW ONE Stop: 06/04/18 18:15 Last Admin: 06/04/18 19:01 Dose: 1 btl Departure - Departure Disposition: Home, Routine, Self-Care Clinical Impression: Vomiting and diarrhea Condition: Good Instructions: Ondansetron (By mouth), Acute Nausea and Vomiting (ED) Additional Instructions: Zofran 1 tablet under the tongue every 6 hours as needed for nausea. Clear liquids for 24 hours. Advance diet as tolerated. I suggest the BRAT diet to start: bananas, rice, applesauce and toast. Return for worsening symptoms, persistent vomiting, abdominal pain, any concerns. Referrals: Billie Harvey, [facility] [employer] [Primary Care Provider] - As per Instructions Prescriptions: Ondansetron Odt [Zofran Odt 4 mg (*)] 4 mg PO Q4 PRN #6 tab PRN Reason: Nausea
[2018-06-04 17:24] LABS: PLATELET COUNT 352 10^3/uL (150-400)
[2018-06-04 17:37] LABS: INR 1.39 (0.83-1.16)
[2018-06-04] MEDS ORDERED: ONDANSETRON 4MG PREPACK#2 BTL TAKEHOME ONE (18:14)
[2018-06-04 18:21] LABS: PROTIME(PATIENT) 17.2 SEC (12.0-15.0)
[2018-06-04 18:51] VITALS: BP 116/57
--- NOTE | 2018-06-04 20:48 | CPEKG ---
Test Reason : OPEN Blood Pressure : / mmHG Vent. Rate : 074 BPM Atrial Rate : 075 BPM P-R Int : 150 ms QRS Dur : 075 ms QT Int : 429 ms P-R-T Axes : 049 049 043 degrees QTc Int : 476 ms Sinus rhythm Confirmed by Ban Akers ([id number]) on 06/04/2018 8:48:05 PM Referred By: Confirmed By:Ban Akers
== END 2018-06-04 19:10 | disposition home or self-care (01) ==
DX: R11.2 Nausea with vomiting, unspecified (principal); R19.7 Diarrhea, unspecified; E86.9 Volume depletion, unspecified; Z98.890 Other specified postprocedural states
CPT/HCPCS: 71046; 93005; 96361; 96374; 99285; J2405

== ENCOUNTER → 2018-07-04 | Outpatient (CLI) | payer OTHER, MEDICARE | LOC: FIMAGING 14:44 | PROVIDERS: ATTEND Nurse Practitioner | DX: Z12.31 Encounter for screening mammogram for malignant neoplasm of breast (principal) ==

== ENCOUNTER → 2018-07-22 | Outpatient (CLI) | payer OTHER, MEDICARE | LOC: FIMAGING 10:16 | PROVIDERS: ATTEND Nurse Practitioner | DX: Z13.820 Encounter for screening for osteoporosis (principal); M85.89 Other specified disorders of bone density and structure, multiple sites; Z78.0 Asymptomatic menopausal state ==